=== PATIENT | female | born 1930 | race Caucasian/White ===

== ENCOUNTER 2016-04-08 21:03 | Emergency (ER) | payer OTHER ==
[~2016-04-08] VITALS: Ht 165.1 cm; Wt 51.0 kg
[~2016-04-08 21:03] MED LIST: ASPI81TA45 PO; LISI-360 PO
[2016-04-08 21:05] VITALS: BP 147/75; PULSE 77; RESP 14; TEMP 97.9; O2SAT 98
--- NOTE | 2016-04-08 21:34 | PD ---
HPI Chief Complaint: Fall Time Seen by Provider: 21:14 Travel History International Travel<30 days: No Contact w/Intl Traveler<30days: No Traveled to known affect area: No History of Present Illness HPI 86-year-old female is complaining of chest pain from a fall. She was at her daughter's house. She stood up and fell forward and hit her chest on the coffee table. Since then she's having pain across her chest which is aggravated by movement and deep breathing. She does not think she had any pain before the fall. She is somewhat forgetful. There was no loss of consciousness PFSH Past Medical History Diminished Hearing: No Hypertension: Yes Menopausal: Yes Past Surgical History Appendectomy: Yes Social History Alcohol Use: No Tobacco Use: No Substance Use: No Allergies-Medications (Allergen,Severity, Reaction): Coded Allergies: No Known Allergies (Unverified , 04/08/16) Reported Meds & Prescriptions Reported Meds & Active Scripts Active Reported Galantamine ER (Galantamine Hydrobromide) 16 Mg Caper 16 Mg PO DAILY Lisinopril 10 Mg Tab 10 Mg PO DAILY Review of Systems General / Constitutional: No: Fever, Chills Eyes: No: Diploplia, Blurred Vision HENT: No: Headaches Cardiovascular: Positive: Chest Pain or Discomfort Respiratory: Positive: Pleuritic Pain, No: Wheezing, Sneezing Gastrointestinal: No: Nausea, Vomiting Genitourinary: No: Urgency, Frequency Musculoskeletal: No: Myalgias, Arthralgias Skin: No Rash, No Itching Neurologic: No: Weakness Hematologic/Lymphatic: No: Easy Bruising Physical Exam Narrative GENERAL: Elderly female SKIN: Warm and dry. HEAD: Atraumatic. Normocephalic. EYES: Pupils equal and round. No scleral icterus. No injection or drainage. ENT: No nasal bleeding or discharge. Mucous membranes pink and moist. NECK: Trachea midline. No JVD. CARDIOVASCULAR: Regular rate and rhythm. No murmur appreciated. Is tenderness across the anterior chest. I do not feel any crepitus RESPIRATORY: No accessory muscle use. Clear to auscultation. Breath sounds equal bilaterally. GASTROINTESTINAL: Abdomen soft, non-tender, nondistended. Hepatic and splenic margins not palpable. MUSCULOSKELETAL: No obvious deformities. No clubbing. No cyanosis. No edema. NEUROLOGICAL: Awake and alert. No obvious cranial nerve deficits. Motor grossly within normal limits. Normal speech. PSYCHIATRIC: Appropriate mood and affect; insight and judgment normal. Data Data Last Documented VS Vital Signs Date Time Temp Pulse Resp B/P Pulse Ox O2 Delivery O2 Flow Rate FiO2 04/08/16 21:34 77 18 98 Room Air 04/08/16 21:05 97.9 147/75 Orders Electrocardiogram (04/08/16 21:29) Chest, Pa & Lat (04/08/16 21:29) Acetaminophen (Tylenol) (04/08/16 21:45) MDM Medical Decision Making Medical Screen Exam Complete: Yes Emergency Medical Condition: Yes Medical Record Reviewed: Yes Differential Diagnosis Differential includes rib fracture, pneumothorax, myocardial infarction Narrative Course EKG shows sinus rhythm. This does not appear to be cardiac pain as it was triggered by an injury and is reproducible with palpation x-ray of the chest was negative for fracture and the lung henry are clear. She is stable for discharge Diagnosis Primary Impression: Chest wall contusion Qualified Code: S20.219A - Chest wall contusion, unspecified laterality, initial encounter Disposition: DISCHARGE HOME Condition: Stable Lavell Jimenez MD Apr 08, 2016 21:34
[2016-04-08] MEDS ORDERED: GALA16CA PO (21:40)
[2016-04-08] MEDS ORDERED: LISI10TA3 PO (21:40)
[2016-04-08] MEDS ORDERED: ACETAMINOPHEN 325 MG TAB PO ONE (21:45)
--- NOTE | 2016-04-08 22:32 | RADHPO ---
EXAM DATE/TIME: 04/08/2016 22:11 [facility] COMPARISON: No previous studies available for comparison. INDICATIONS : Chest pain after fall MEDICAL HISTORY : None. SURGICAL HISTORY : None. ENCOUNTER: Initial ACUITY: 1 day PAIN SCORE: 6/10 LOCATION: Bilateral chest FINDINGS: PA and lateral views of the chest demonstrate the lungs to be symmetrically aerated without evidence of mass, infiltrate or effusion. The cardiomediastinal contours are unremarkable. Osseous structure s are intact. The thoracic spine is kyphotic. CONCLUSION: No acute disease. Cisco Sam MD on April 08, 2016 at 22:29 Board Certified Radiologist. This report was verified electronically.
[2016-04-08 22:49] VITALS: BP 145/72
[2016-04-08 22:51] VITALS: RESP 18
--- NOTE | 2016-04-09 17:04 | EKG ---
Date Performed: 04/08/2016 Time Performed: 21:40:16 PTAGE: 86 years EKG: Sinus rhythm . Left anterior fascicular block Cannot rule out septal infarct - age undetermined Left ventricular h ypertrophy Compared to prior tracing no significant change Abnormal ECG NO PREVIOUS TRACING DOCTOR: Sofy Xavier Interpretating Date/Time 04/09/2016 17:02:09
== END 2016-04-08 22:51 | disposition home or self-care (01) ==
LOC: PHED 21:03
DX: S20.219A Contusion of unspecified front wall of thorax, initial encounter (principal); R94.31 Abnormal electrocardiogram [ECG] [EKG]; I10 Essential (primary) hypertension; W18.39XA Other fall on same level, initial encounter; Y92.009 Unspecified place in unspecified non-institutional (private) residence as the place of occurrence of the external cause
CPT/HCPCS: 71020; 93005

== ENCOUNTER 2017-03-03 15:34 | Emergency (ER) | payer OTHER ==
[~2017-03-03] VITALS: Ht 162.6 cm; Wt 60.8 kg
[~2017-03-03 15:34] MED LIST changes: -ASPI81TA45 PO; +GALA16CA PO; -LISI-360 PO; +LISI10TA3 PO
[2017-03-03 15:39] VITALS: BP 173/71; PULSE 88; RESP 16; TEMP 97.4; O2SAT 98
[2017-03-03] MEDS ORDERED: LUTE20CA10 PO (16:33)
[2017-03-03] MEDS ORDERED: ASPI81CH6 CHEW (16:33)
[2017-03-03] MEDS ORDERED: NAME10TA PO (16:33)
[2017-03-03] MEDS ORDERED: OMEGCAP PO (16:33)
[2017-03-03] MEDS ORDERED: BIOT10TA PO (16:33)
[2017-03-03] MEDS ORDERED: CITA10TA4 PO (16:33)
--- NOTE | 2017-03-03 16:55 | PD ---
HPI Chief Complaint: Fall Time Seen by Provider: 16:32 Travel History International Travel<30 days: No Contact w/Intl Traveler<30days: No Traveled to known affect area: No History of Present Illness HPI 86-year-old female long term patient with history of dementia, presents to the ER today brought in by her family because apparently she was found on the side of the bed, thinks that she fell, does not remember whether she lost consciousness or not. She has some bruising to her left face, both arms. Patient denies other injuries, was ambulatory into the room with family. She denies any chest pains, shortness of breath, headaches, vomiting, or other issues. Modifying Factors: None Associated Signs & Symptoms: Fall from bed, left facial injuries Risk Factors: Elderly, demented [facility] Past Medical History Depression: Yes Dementia: Yes Diminished Hearing: No Hypertension: Yes Immunizations Current: Yes Influenza Vaccination: Yes ?: Not Menopausal: Yes Past Surgical History Appendectomy: Yes Social History Alcohol Use: No Tobacco Use: No Substance Use: No Allergies-Medications (Allergen,Severity, Reaction): Coded Allergies: No Known Allergies (Unverified Adverse Reaction, Unknown, 03/03/17) Reported Meds & Prescriptions Reported Meds & Active Scripts Active Reported Natural Lutein (Lutein) 20 Mg Cap 20 Mg PO DAILY Namenda (Memantine) 10 Mg Tab 10 Mg PO BID [place]-3 Fish Oil/Vitamin (Fish Oil-Cholecalciferol) 1,000-1,000 Mg Cap 1 Cap PO DAILY Biotin 10 Mg Tab 100 Mg PO DAILY Aspirin Low Dose (Aspirin) 81 Mg Chew 81 Mg CHEW DAILY Citalopram (Citalopram Hydrobromide) 10 Mg Tab 10 Mg PO DAILY Lisinopril 10 Mg Tab 10 Mg PO DAILY Review of Systems ROS Limitations: Altered Mental Status Physical Exam Narrative GENERAL: Well-developed pleasant elderly white female patient currently in mild distress. Awake and oriented 3. SKIN: Focused skin assessment warm/dry. Small amount of ecchymosis to the left upper arm and small spot of ecchymosis to the right knee. HEAD: There is small amount of ecchymosis over the left zygomatic area and left lateral orbital area, mildly tender to palpation without deformities. Normocephalic. EYES: Pupils equal and round. No scleral icterus. No injection or drainage. ENT: No nasal bleeding or discharge. Mucous membranes pink and moist. NECK: Trachea midline. No JVD. CARDIOVASCULAR: Regular rate and rhythm. No murmur appreciated. RESPIRATORY: No accessory muscle use. Clear to auscultation. Breath sounds equal bilaterally. GASTROINTESTINAL: Abdomen soft, non-tender, nondistended. Hepatic and splenic margins not palpable. MUSCULOSKELETAL: No obvious deformities. No clubbing. No cyanosis. No edema. EXTREMITIES: No clubbing, cyanosis, or edema. No joint tenderness, effusion, or edema noted. No point tenderness. Nontender to range of motion in all 4 extremities. Pelvis: Stable and nontender to palpation. Nontender range of motion bilaterally of the hips. NEUROLOGICAL: Awake and alert. No obvious cranial nerve deficits. Motor grossly within normal limits. Normal speech. PSYCHIATRIC: Appropriate mood and affect; insight and judgment normal. Data Data Last Documented VS Vital Signs Date Time Temp Pulse Resp B/P (MAP) Pulse Ox O2 Delivery O2 Flow Rate FiO2 03/03/17 16:26 77 98 03/03/17 15:39 97.4 16 173/71 (105) Orders Orders Ct Brain W/O Iv Contrast(Rout) (03/03/17 16:27) Ct Cerv Spine W/O Contrast (03/03/17 16:32) Ct Facial Bones W/O Iv Cont (03/03/17 16:32) MDM Medical Decision Making Medical Screen Exam Complete: Yes Emergency Medical Condition: Yes Medical Record Reviewed: Yes Interpretation(s) Last [address] 03/03/17 1632 Signed Impressions: Service Date/Time: Friday, March 03, 2017 17:14 - CONCLUSION: 1. No acute bony injury is seen. 2. Focal superficial soft tissue swelling at the left submandibular region. 3. Sinus disease. Cisco Sam MD Head CT 03/03/17 1627 Signed Impressions: Service Date/Time: Friday, March 03, 2017 17:14 - CONCLUSION: 1. No acute intracranial abnormality seen. 2. Age-related atrophy and suspected small vessel ischemic changes white matter. 3. Opacification of the right sphenoid sinus. This is unchanged from the prior exam. Cisco Sam MD Differential Diagnosis Fall, head injury, left facial injury/rule out intracranial injuries Narrative Course Patient is ambulatory in the ER. She has nontender range of motion in all 4 extremities and I do not suspect underlying acute fractures in this case. She is ambulatory in the ER moving all 4 extremities without issues. CAT scans of the head, neck, and face did not show any signs of acute fractures or intracranial injuries. At this point, my plan would be to release her with follow-up to primary care doctor. Return for any new issues as needed. The plan has discussed with her and family and they state understanding. Diagnosis Primary Impression: Fall from bed Additional Impressions: Multiple contusions Facial contusion Disposition: 03 DISCHARGE TO SNF Condition: Stable Khushbu Castle MD Mar 03, 2017 16:55
--- NOTE | 2017-03-03 17:28 | RADRPT ---
EXAM DATE/TIME: 03/03/2017 17:14 [facility] COMPARISON: CT BRAIN W/O CONTRAST, July 25, 2014, 19:57. INDICATIONS : Fell and hit head. RADIATION DOSE: 53.67 CTDIvol (mGy) MEDICAL HISTORY : Dementia. Hypertension. SURGICAL HISTORY : Appendectomy. ENCOUNTER: Initial ACUITY: 1 day PAIN SCALE: 6/10 LOCATION: Left cranial TECHNIQUE: Multiple contiguous axial images were obtained of the head. Using automated exposure control and adj ustment of the mA and/or kV according to patient size, radiation dose was kept as low as reasonably a chievable to obtain optimal diagnostic quality images. DICOM format image data is available electro nically for review and comparison. FINDINGS: CEREBRUM: The ventricles and cortical sulci are widened. There is decreased density in the cerebral white matte r. No evidence of midline shift, mass lesion, hemorrhage or acute infarction. No extra-axial fluid collections are seen. POSTERIOR FOSSA: The cerebellum and brainstem are intact. The 4th ventricle is midline. The cerebellopontine angle i s unremarkable. EXTRACRANIAL: The visualized portion of the orbits is intact. There is opacification of the right sphenoid sinus. SKULL: The calvaria is intact. No evidence of skull fracture. CONCLUSION: 1. No acute intracranial abnormality seen. 2. Age-related atrophy and suspected small vessel ischemic changes white matter. 3. Opacification of the right sphenoid sinus. This is unchanged from the prior exam. Cisco Sam MD on March 03, 2017 at 17:25 Board Certified Radiologist. This report was verified electronically.
--- NOTE | 2017-03-03 17:38 | RADRPT ---
EXAM DATE/TIME: 03/03/2017 17:14 [facility] COMPARISON: No previous studies available for comparison. INDICATIONS : Fell and hit head. RADIATION DOSE: 25.68 CTDIvol (mGy) MEDICAL HISTORY : Dementia. Hypertension. SURGICAL HISTORY : Appendectomy. ENCOUNTER: Initial ACUITY: 1 day PAIN SCORE: 6/10 LOCATION: Left facial TECHNIQUE: Volumetric scanning of the facial bones was performed. Using automated exposure control and adjustme nt of the mA and/or kV according to patient size, radiation dose was kept as low as reasonably achiev able to obtain optimal diagnostic quality images. DICOM format image data is available electronicall y for review and comparison. FINDINGS: ORBITS: The orbital and infraorbital osseous structures are intact. The retroconal structures have a normal configuration. No radiopaque foreign bodies are seen. NASAL BONE: The nasal bone and maxillary spine are intact ZYGOMATIC ARCHES: Symmetric without evidence of fracture. SINUSES: There is opacification of the right sphenoid sinus. There some thickening of the bones of the right s phenoid sinus consistent with chronic change. There is mild mucosal thickening at the maxillary sinus es bilaterally. NASAL CAVITY: The nasal septum is intact and midline. The lacrimal ducts are intact. SOFT TISSUES: There is superficial soft tissue swelling at the inferior lateral left lower face and submandibular r egion. INTRACRANIAL: No intracranial air seen. CRIBIFORM PLATE: Grossly intact. CONCLUSION: 1. No acute bony injury is seen. 2. Focal superficial soft tissue swelling at the left submandibular region. 3. Sinus disease. Cisco Sam MD on March 03, 2017 at 17:32 Board Certified Radiologist. This report was verified electronically.
--- NOTE | 2017-03-03 17:44 | RADRPT ---
EXAM DATE/TIME: 03/03/2017 17:14 [facility] COMPARISON: No previous studies available for comparison. INDICATIONS : Fell and hit head. RADIATION DOSE: 26.61 CTDIvol (mGy) MEDICAL HISTORY : Dementia. Hypertension. SURGICAL HISTORY : Appendectomy. ENCOUNTER: Initial ACUITY: 1 day PAIN SCALE: 6/10 LOCATION: Left neck TECHNIQUE: Volumetric scanning of the cervical spine was performed. Multiplanar reconstructions in the sagittal, coronal and oblique axial planes were performed. Using automated exposure control and adjustment o f the mA and/or kV according to patient size, radiation dose was kept as low as reasonably achievable to obtain optimal diagnostic quality images. DICOM format image data is available electronically f or review and comparison. FINDINGS: VERTEBRAE: Normal vertebral body height. Marked intervertebral disc space narrowing at the C5-6 level. ALIGNMENT: There is an accentuated cervical lordosis. Mild anterior spondylolisthesis of C4 on C5.. C2-C3: The bony spinal canal is normal in size. No evidence of disc bulge or herniation. The neural forami na are bilaterally patent. Right-sided facet joint is fused C3-C4: The bony spinal canal is normal in size. No evidence of disc bulge or herniation. The neural forami na are bilaterally patent. Hypertrophic facet disease. C4-C5: The bony spinal canal is normal in size. No evidence of disc bulge or herniation. The neural forami na are bilaterally patent. C5-C6: The bony spinal canal is normal in size. No evidence of disc bulge or herniation. Bilateral facet hy pertrophy. Mild right-sided neural foraminal narrowing.. C6-C7: The bony spinal canal is normal in size. No evidence of disc bulge or herniation. The neural forami na are bilaterally patent. C7-T1: The bony spinal canal is normal in size. No evidence of disc bulge or herniation. The neural forami na are bilaterally patent. CONCLUSION: Accentuated cervical lordosis. Marked intervertebral disc space narrowing at the C5-6 level. No evide nce of endplate fracture. Janak Nuñez MD on March 03, 2017 at 17:39 Board Certified Radiologist. This report was verified electronically.
[2017-03-03 18:06] VITALS: BP 144/68
== END 2017-03-03 18:16 ==
LOC: PHED 15:34
DX: S00.83XA Contusion of other part of head, initial encounter (principal); I10 Essential (primary) hypertension; F03.90 Unspecified dementia, unspecified severity, without behavioral disturbance, psychotic disturbance, mood disturbance, and anxiety; W06.XXXA Fall from bed, initial encounter
CPT/HCPCS: 70450; 70486; 72125

== ENCOUNTER 2017-05-15 15:29 | Emergency (ER) | payer OTHER ==
[~2017-05-15] VITALS: Ht 162.6 cm; Wt 66.0 kg
[~2017-05-15 15:29] MED LIST changes: +ASPI81CH6 CHEW; +BIOT10TA PO; +CITA10TA4 PO; -GALA16CA PO; +LUTE20CA10 PO; +NAME10TA PO; +OMEGCAP PO
[2017-05-15 15:40] VITALS: BP 130/63; PULSE 70; RESP 16; TEMP 97.7; O2SAT 96
--- NOTE | 2017-05-15 17:28 | RADRPT ---
EXAM DATE/TIME: 05/15/2017 17:08 [facility] COMPARISON: CT BRAIN W/O CONTRAST, March 03, 2017, 17:14. INDICATIONS : Trauma, fall. RADIATION DOSE: 61.08 CTDIvol (mGy) MEDICAL HISTORY : Dementia. Hypertension. SURGICAL HISTORY : None. ENCOUNTER: Initial ACUITY: 1 day PAIN SCALE: 0/10 LOCATION: cranial TECHNIQUE: Multiple contiguous axial images were obtained of the head. Using automated exposure control and adj ustment of the mA and/or kV according to patient size, radiation dose was kept as low as reasonably a chievable to obtain optimal diagnostic quality images. DICOM format image data is available electro nically for review and comparison. FINDINGS: CEREBRUM: There is generalized atrophy. Moderate to severe periventricular white matter low attenuation is stab le. No evidence of midline shift, mass lesion, hemorrhage or acute infarction. No extra-axial fluid collections are seen. POSTERIOR FOSSA: The cerebellum and brainstem are intact. The 4th ventricle is midline. The cerebellopontine angle i s unremarkable. EXTRACRANIAL: There is chronic opacification of the right sphenoid sinus. SKULL: The calvaria is intact. No evidence of skull fracture. CONCLUSION: 1. No acute intracranial abnormality is identified. 2. Stable chronic brain changes include generalized atrophy and periventricular white matter changes characteristic of chronic microvascular ischemia. Cisco Kiran MD on May 15, 2017 at 17:25 Board Certified Radiologist. This report was verified electronically.
--- NOTE | 2017-05-15 17:33 | RADRPT ---
EXAM DATE/TIME: 05/15/2017 17:08 [facility] COMPARISON: CT CERVICAL SPINE W/O CONTRAST, March 03, 2017, 17:14. INDICATIONS : Trauma, fall. RADIATION DOSE: 25.99 CTDIvol (mGy) MEDICAL HISTORY : Dementia. Hypertension. SURGICAL HISTORY : None. ENCOUNTER: Initial ACUITY: 1 day PAIN SCALE: 0/10 LOCATION: neck TECHNIQUE: Volumetric scanning of the cervical spine was performed. Multiplanar reconstructions in the sagittal, coronal and oblique axial planes were performed. Using automated exposure control and adjustment o f the mA and/or kV according to patient size, radiation dose was kept as low as reasonably achievable to obtain optimal diagnostic quality images. DICOM format image data is available electronically f or review and comparison. FINDINGS: There is stable minimal anterolisthesis of C4 on C5 likely related to facet arthrosis. The atlantoaxi al relationship is within normal limits. There is no prevertebral soft tissue swelling present. No fr acture or dislocation is identified. There is multilevel degenerative disc disease at C3-C4 through C 6-C7. There is also bilateral facet arthrosis at multiple levels. Findings are similar to the prior e xamination. The visualized portions of the posterior fossa, paraspinous soft tissues, and upper lung zones demons trate no acute abnormality. CONCLUSION: No acute cervical spine abnormality is identified. There is multilevel degenerative change, as above. Cisco Kiran MD on May 15, 2017 at 17:28 Board Certified Radiologist. This report was verified electronically.
--- NOTE | 2017-05-15 17:45 | RADRPT ---
EXAM DATE/TIME: 05/15/2017 17:19 [facility] COMPARISON: No previous studies available for comparison. INDICATIONS : Right upper arm pain post fall today MEDICAL HISTORY : None. SURGICAL HISTORY : None. ENCOUNTER: Initial ACUITY: 1 day PAIN SCORE: 5/10 LOCATION: Right mid-shaft humerus FINDINGS: 2 views right humerus demonstrate no fracture or dislocation. Mineralization is decreased. No soft ti ssue abnormality or radiopaque foreign body is identified. CONCLUSION: No acute abnormality is identified. Cisco Kiran MD on May 15, 2017 at 17:42 Board Certified Radiologist. This report was verified electronically.
--- NOTE | 2017-05-15 17:46 | RADRPT ---
EXAM DATE/TIME: 05/15/2017 17:19 [facility] COMPARISON: No previous studies available for comparison. INDICATIONS : Right hip pain post fall today MEDICAL HISTORY : None. SURGICAL HISTORY : None. ENCOUNTER: Initial ACUITY: 1 day PAIN SCORE: 5/10 LOCATION: Right entire hip FINDINGS: AP view of the pelvis with 2 views of the right hip joint demonstrate no fracture or dislocation. The bones are mildly undermineralized. 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 Degenerative change s are present at the pubic symphysis. No soft tissue abnormality or radiopaque foreign body is identi fied. CONCLUSION: No acute abnormality is identified. Cisco Kiran MD on May 15, 2017 at 17:44 Board Certified Radiologist. This report was verified electronically.
--- NOTE | 2017-05-15 17:49 | PD ---
HPI Chief Complaint: Fall Time Seen by Provider: 16:45 Travel History International Travel<30 days: No Contact w/Intl Traveler<30days: No Traveled to known affect area: No History of Present Illness HPI 87yo F with PMH of dementia was sent here for evaluation after fall. Pt said she does not know how or why she fell. She said it happened so fast and cant remember exactly what happened. Denies any dizziness, fever, chest pain, sob, n /v, abdominal pain, focal weakness or numbness. PFSH Past Medical History Hx Anticoagulant Therapy: No Depression: Yes Dementia: Yes Diminished Hearing: No Hypertension: Yes Immunizations Current: Yes Tetanus Vaccination: Unknown ?: Not Menopausal: Yes Past Surgical History Appendectomy: Yes Social History Alcohol Use: No Tobacco Use: No Substance Use: No Allergies-Medications (Allergen,Severity, Reaction): Coded Allergies: No Known Allergies (Unverified Adverse Reaction, Unknown, 05/15/17) Reported Meds & Prescriptions Reported Meds & Active Scripts Active Tylenol (Acetaminophen) 325 Mg Tab 325 Mg PO Q4H PRN Reported Natural Lutein (Lutein) 20 Mg Cap 20 Mg PO DAILY Namenda (Memantine) 10 Mg Tab 10 Mg PO BID [place]-3 Fish Oil/Vitamin (Fish Oil-Cholecalciferol) 1,000-1,000 Mg Cap 1 Cap PO DAILY Biotin 10 Mg Tab 100 Mg PO DAILY Aspirin Low Dose (Aspirin) 81 Mg Chew 81 Mg CHEW DAILY Citalopram (Citalopram Hydrobromide) 10 Mg Tab 10 Mg PO DAILY Lisinopril 10 Mg Tab 10 Mg PO DAILY Review of Systems Except as stated in HPI: all other systems reviewed are Neg Physical Exam Narrative GEN: 87yo F not in distress. HEAD: Normocephalic, atraumatic. EYES: Pupils reactive and equal. ENT: +Dry blood in right nostril. No hemotympanum. NECK: No midline ttp cervical spine. CV: S1, S2. Lungs: CTA B/L, equal breath sounds. Abd: soft, NT/ND. Ext: +TTP right mid humerus. No edema or erythema. FROM right shoulder. Distal pulses intact. Sensation intact. Mild ttp right hip but good ROM. Sensation intact. Distal pulses intact. Neuro: No focal neurologic deficits. Data Data Last Documented VS Vital Signs Date Time Temp Pulse Resp B/P (MAP) Pulse Ox O2 Delivery O2 Flow Rate FiO2 05/15/17 20:08 98.2 75 16 182/70 (107) 100 05/15/17 19:02 Room Air Orders Orders Electrocardiogram (05/15/17 17:00) Basic Metabolic Panel (Bmp) (05/15/17 17:00) Complete Blood Count With Diff (05/15/17 17:00) Magnesium (Mg) (05/15/17 17:00) Troponin I (05/15/17 17:00) Act Partial Throm Time (Ptt) (05/15/17 17:00) Prothrombin Time / Inr (Pt) (05/15/17 17:00) Ct Brain W/O Iv Contrast(Rout) (05/15/17 17:00) Ct Cerv Spine W/O Contrast (05/15/17 17:00) Humerus (Min 2vws) (05/15/17 ) Hip, Uni(Ap&Lat) W Ap Pelvis (05/15/17 ) Acetaminophen (Tylenol) (05/15/17 19:45) Ed Discharge Order (05/15/17 19:46) Labs Laboratory Tests Test 05/15/17 17:38 White Blood Count 7.0 TH/MM3 Red Blood Count 3.70 MIL/MM3 Hemoglobin 10.6 GM/DL Hematocrit 33.8 % Mean Corpuscular Volume 91.4 FL Mean Corpuscular Hemoglobin 28.7 PG Mean Corpuscular Hemoglobin Concent 31.4 % Red Cell Distribution Width 14.5 % Platelet Count 277 TH/MM3 Mean Platelet Volume 9.0 FL Neutrophils (%) (Auto) 56.8 % Lymphocytes (%) (Auto) 25.2 % Monocytes (%) (Auto) 12.1 % Eosinophils (%) (Auto) 4.8 % Basophils (%) (Auto) 1.1 % Neutrophils # (Auto) 4.0 TH/MM3 Lymphocytes # (Auto) 1.8 TH/MM3 Monocytes # (Auto) 0.8 TH/MM3 Eosinophils # (Auto) 0.3 TH/MM3 Basophils # (Auto) 0.1 TH/MM3 CBC Comment DIFF FINAL Differential Comment Prothrombin Time 10.4 SEC Prothromb Time International Ratio 1.0 RATIO Activated Partial Thromboplast Time 21.2 SEC Blood Urea Nitrogen 39 MG/DL Creatinine 1.30 MG/DL Random Glucose 93 MG/DL Calcium Level 8.5 MG/DL Magnesium Level 2.4 MG/DL Sodium Level 140 MEQ/L Potassium Level 4.7 MEQ/L Chloride Level 108 MEQ/L Carbon Dioxide Level 23.2 MEQ/L Anion Gap 9 MEQ/L Estimat Glomerular Filtration Rate 39 ML/MIN Troponin I LESS THAN 0.02 NG/ML MDM Medical Decision Making Medical Screen Exam Complete: Yes Emergency Medical Condition: Yes Interpretation(s) EKG: NSR 67bpm. LAD. QTc 416ms. No ST segment elevation or depression. Differential Diagnosis Mechanical fall vs. syncope vs. dehydration vs. ICH Narrative Course 87yo F with dementia from [facility] was sent here for evaluation after fall. Labs reviewed, no leukocytosis. H/H low at 10.6/33.8 but this is around her baseline. BMP showed elevated BUN/creatinine of 39/1.30. Pt is tolerating PO and can orally hydrate. Troponin negative. CT cspine showed no acute cervical spine abnormality. CT brain showed no acute intracranial abnormality. Xray right hip showed no acute abnormality. Xray right humerus showed no acute abnormality. Pt is well appearing and denies any complaints at this time. No abrasion or laceration. Pt did have dry blood in right nostril. Denies any anticoagulation. [facility] Return precautions given. Diagnosis Primary Impression: Fall Qualified Codes: W19.XXXA - Unspecified fall, initial encounter Patient Instructions: General Instructions Departure Forms: Tests/Procedures Additional Instructions: Please follow up with your primary care physician in 2-3 days. Return to the ED if symptoms worsen. Med/Other Pt SpecificInfo: Prescription(s) given Scripts Acetaminophen (Tylenol) 325 Mg Tab 325 MG PO Q4H Y for PAIN SCALE 1 TO 4, #20 TAB 0 Refills Prov: FrostNguyen 05/15/17 Disposition: 01 DISCHARGE HOME Condition: Stable FrostNguyen DO May 15, 2017 17:49
[2017-05-15 18:38] LABS: BASOPHIL # 0.1 TH/MM3 (0-0.2); BASOPHIL % 1.1 % (0.0-2.0); EOSINOPHIL # 0.3 TH/MM3 (0-0.4); EOSINOPHIL % 4.8 % (0.0-4.0); HEMATOCRIT 33.8 % (35.0-46.0); HEMOGLOBIN 10.6 GM/DL (11.6-15.3); LYMPH % 25.2 % (9.0-44.0); LYMPHOCYTE # 1.8 TH/MM3 (1.0-4.8); MEAN CELL VOLUME 91.4 FL (80.0-100.0); MEAN CORPUSCULAR HEMOGLOBIN 28.7 PG (27.0-34.0); MEAN CORPUSCULAR HGB CONC 31.4 % (32.0-36.0); MONO % 12.1 % (0.0-8.0); MONOCYTE # 0.8 TH/MM3 (0-0.9); NEUT % 56.8 % (16.0-70.0); PLATELET COUNT 277 TH/MM3 (150-450); RED CELL DISTRIBUTION WIDTH 14.5 % (11.6-17.2)
[2017-05-15 18:48] LABS: CHLORIDE 108 MEQ/L (98-107); SODIUM (NA) 140 MEQ/L (136-145)
[2017-05-15 18:51] LABS: BICARBONATE 23.2 MEQ/L (21.0-32.0); BLOOD UREA NITROGEN 39 MG/DL (7-18); CALCIUM 8.5 MG/DL (8.5-10.1); GLUCOSE,RANDOM 93 MG/DL (74-106); MAGNESIUM 2.4 MG/DL (1.5-2.5)
[2017-05-15 18:54] LABS: PROTHROMBIN TIME - PATIENT 10.4 SEC (9.8-11.6)
[2017-05-15 18:55] LABS: GLOMERULAR FILTRATION RATE 39 ML/MIN (>89)
[2017-05-15 18:59] LABS: TROPONIN I LESS THAN 0.02 NG/ML (0.02-0.05)
[2017-05-15 19:02] VITALS: BP 199/65; PULSE 88; RESP 16; O2SAT 97
[2017-05-15] MEDS ORDERED: TYLE325T PO (19:40)
[2017-05-15] MEDS ORDERED: ACETAMINOPHEN 500 MG CPLT PO ONE (19:45)
[2017-05-15 20:08] VITALS: BP 182/70; TEMP 98.2
--- NOTE | 2017-05-16 11:31 | EKG ---
Date Performed: 05/15/2017 Time Performed: 17:40:59 PTAGE: 87 years EKG: Sinus rhythm MARKED LEFT AXIS DEVIATION VOLTAGE CRITERIA FOR LVH POSSIBLE SEPTAL MYOCARDIAL INFARCTION ABNORMAL E CG Since the prior tracing, there has been no significant change PREVIOUS TRACING : 04/08/2016 21.40 DOCTOR: Sofy Xavier Interpretating Date/Time 05/16/2017 11:29:22
== END 2017-05-15 20:10 | disposition home or self-care (01) ==
LOC: PHED 15:29
DX: Z04.8 Encounter for examination and observation for other specified reasons (principal); F03.90 Unspecified dementia, unspecified severity, without behavioral disturbance, psychotic disturbance, mood disturbance, and anxiety; I10 Essential (primary) hypertension; R94.31 Abnormal electrocardiogram [ECG] [EKG]; F32.9 Major depressive disorder, single episode, unspecified; W19.XXXA Unspecified fall, initial encounter; Y92.129 Unspecified place in nursing home as the place of occurrence of the external cause; Z79.82 Long term (current) use of aspirin; Z79.899 Other long term (current) drug therapy
CPT/HCPCS: 70450; 72125; 73060; 73502; 80048; 83735; 84484; 85025; 85610; 85730; 93005; 99285

== ENCOUNTER 2017-06-11 15:13 | Inpatient (IN) | payer OTHER, MEDICARE ==
[~2017-06-11] VITALS: Ht 165.1 cm; Wt 65.4 kg
[~2017-06-11 15:13] MED LIST changes: +TYLE325T PO
[2017-06-11 15:22] VITALS: BP 157/74; PULSE 82; RESP 16; TEMP 97.6; O2SAT 93
[2017-06-11] MEDS ORDERED: LIDOCAINE HCL 1% 50 ML VIAL INFIL ONE (15:30)
[2017-06-11] MEDS ORDERED: TETANUS/DIPHTHERIA TOXOID ADULT 0.5 ML VIAL IM ONE (15:30)
[2017-06-11] MEDS ORDERED: DONE5TAB7 PO (15:34)
[2017-06-11] MEDS ORDERED: LIDOCAINE HCL 1% PF 30 ML VIAL ONE (15:36)
[2017-06-11] MEDS ORDERED: LIDOCAINE HCL 1% PF 30 ML VIAL INFIL ONE (15:45)
[2017-06-11] MEDS ORDERED: SODIUM CHLORIDE 0.9% FLUSH 10 ML FLUSH IVF PRN (16:00)
--- NOTE | 2017-06-11 16:04 | PD ---
HPI Chief Complaint: Fall Time Seen by Provider: 15:17 Travel History International Travel<30 days: No Contact w/Intl Traveler<30days: No Traveled to known affect area: No History of Present Illness HPI 87-year-old woman who presents to the emergency department complaining of left leg pain after a fall. She states that she tripped on a rug. She fell. She complains of pain just in her left hip and left thigh. She has a small laceration to her left brow. Denies any LOC. Was not witnessed. She resides in a senior home. States only medical history is hypertension. Denies any blood thinners. No other complaints. History Past Medical History Narrative Medical Hypertension Tetanus Vaccination: Unknown Menopausal: Yes Social History Alcohol Use: No Tobacco Use: No Allergies-Medications (Allergen,Severity, Reaction): Coded Allergies: No Known Allergies (Unverified Adverse Reaction, Unknown, 06/11/17) Reported Meds & Prescriptions Reported Meds & Active Scripts Active Tylenol (Acetaminophen) 325 Mg Tab 325 Mg PO Q4H PRN Reported Donepezil 5 Mg Tab 5 Mg PO HS Natural Lutein (Lutein) 20 Mg Cap 20 Mg PO DAILY Namenda (Memantine) 10 Mg Tab 10 Mg PO BID [place]-3 Fish Oil/Vitamin (Fish Oil-Cholecalciferol) 1,000-1,000 Mg Cap 1 Cap PO DAILY Biotin 10 Mg Tab 100 Mg PO DAILY Aspirin Low Dose (Aspirin) 81 Mg Chew 81 Mg CHEW DAILY Citalopram (Citalopram Hydrobromide) 10 Mg Tab 10 Mg PO DAILY Lisinopril 10 Mg Tab 10 Mg PO DAILY Review of Systems Except as stated in HPI: all other systems reviewed are Neg Physical Exam Narrative GENERAL: Elderly 87-year-old woman, no acute distress per SKIN: Focused skin assessment warm/dry. HEAD: Normocephalic. There is about 1 inch laceration to the left brow. Some tenderness there was some ecchymosis. No significant swelling. EYES: Pupils equal and round. No scleral icterus. No injection or drainage. ENT: No nasal bleeding or discharge. Mucous membranes pink and moist. NECK: No midline tenderness. Moves neck freely. CARDIOVASCULAR: Regular rate and rhythm. No murmur appreciated. RESPIRATORY: No accessory muscle use. Clear to auscultation. Breath sounds equal bilaterally. GASTROINTESTINAL: Abdomen soft, non-tender, nondistended. Hepatic and splenic margins not palpable. MUSCULOSKELETAL: No obvious deformities. No edema. NEUROLOGICAL: Awake and alert. No obvious cranial nerve deficits. Motor grossly within normal limits. Normal speech. PSYCHIATRIC: Appropriate mood and affect; insight and judgment normal. Data Data Last Documented VS Vital Signs Date Time Temp Pulse Resp B/P (MAP) Pulse Ox O2 Delivery O2 Flow Rate FiO2 06/11/17 15:28 16 93 Room Air 06/11/17 15:22 97.6 82 157/74 (101) Orders Orders Ct Brain W/O Iv Contrast(Rout) (06/11/17 ) Pelvis, Ap Only (Routine) (06/11/17 ) Femur (Ap & Lat/2vws) (06/11/17 ) Lidocaine 1% Inj (50 Ml) (Xylocaine 1% I (06/11/17 15:30) Tetanus/Diphtheria Tox Adult (Tetanus/Di (06/11/17 15:30) Lidocaine Pf 1% Inj (Xylocaine-Mpf 1% In (06/11/17 15:45) Lidocaine Pf 1% Inj (Xylocaine-Mpf 1% In (06/11/17 15:36) Electrocardiogram (06/11/17 15:54) Complete Blood Count With Diff (06/11/17 15:54) Comprehensive Metabolic Panel (06/11/17 15:54) Prothrombin Time / Inr (Pt) (06/11/17 15:54) Act Partial Throm Time (Ptt) (06/11/17 15:54) Urinalysis - C+S If Indicated (06/11/17 15:54) Type And Screen (06/11/17 15:54) Chest, Single Ap (06/11/17 15:54) Iv Access Insert/Monitor (06/11/17 15:54) Oximetry (06/11/17 15:54) Ice/Cold Pack (06/11/17 15:54) Ecg Monitoring (06/11/17 15:54) Sodium Chloride 0.9% Flush (Ns Flush) (06/11/17 16:00) MDM Medical Decision Making Medical Screen Exam Complete: Yes Emergency Medical Condition: Yes Interpretation(s) My review of left hip x-ray: Femoral neck fracture. Differential Diagnosis Hip fracture, femur fracture, contusion, pubic rami fracture, other Narrative Course Medical decision making INITIAL call is an 87-year-old woman presents to the emergency department with left hip pain after a fall. She reports tripping on a rug. She also has a small laceration her left brow. Is not on blood thinners. Check CT head. X- ray of the hip shows a femoral neck fracture. Will obtain preop labs and EKG. Admit to medicine. Routine Orth O consult. Janak Longoria MD Jun 11, 2017 16:04
--- NOTE | 2017-06-11 16:15 | RADRPT ---
EXAM DATE/TIME: 06/11/2017 15:33 [facility] COMPARISON: No previous studies available for comparison. INDICATIONS : Left hip pain post fall. MEDICAL HISTORY : None. SURGICAL HISTORY : None. ENCOUNTER: Initial ACUITY: 1 day PAIN SCORE: 5/10 LOCATION: Left pelvis. FINDINGS: A single frontal view the pelvis shows osteopenia. A linear lucency is seen involving the subcapital femoral neck on the left. There is cortical irregularity. Femoral head remains in contact with the ac etabulum. The bony pelvis is otherwise intact. Degenerative changes involving the hip joints and pubi c symphysis. CONCLUSION: Acute left subcapital femoral neck fracture. Kris Nino Jr., MD on June 11, 2017 at 16:12 Board Certified Radiologist. This report was verified electronically.
--- NOTE | 2017-06-11 16:16 | RADRPT ---
EXAM DATE/TIME: 06/11/2017 15:33 [facility] COMPARISON: No previous studies available for comparison. INDICATIONS : Left femur pain post fall. MEDICAL HISTORY : None. SURGICAL HISTORY : None. ENCOUNTER: Initial ACUITY: 1 day PAIN SCORE: 5/10 LOCATION: Left femur. FINDINGS: There is a mildly displaced subcapital fracture of the proximal left femur. No dislocation. No other fractures are identified. CONCLUSION: 1. Mildly displaced subcapital fracture proximal left femur. Darnell Kam MD on June 11, 2017 at 16:12 Board Certified Radiologist. This report was verified electronically.
[2017-06-11 16:33] LABS: AUTOMATED NEUTROPHIL # 8.9 TH/MM3 (1.8-7.7); BASOPHIL # 0.2 TH/MM3 (0-0.2); BASOPHIL % 1.7 % (0.0-2.0); EOSINOPHIL # 0.2 TH/MM3 (0-0.4); EOSINOPHIL % 1.7 % (0.0-4.0); HEMOGLOBIN 11.2 GM/DL (11.6-15.3); LYMPH % 8.8 % (9.0-44.0); MEAN CORPUSCULAR HEMOGLOBIN 30.9 PG (27.0-34.0); MEAN CORPUSCULAR HGB CONC 33.9 % (32.0-36.0); MEAN PLATELET VOLUME 7.8 FL (7.0-11.0); MONO % 5.6 % (0.0-8.0); MONOCYTE # 0.6 TH/MM3 (0-0.9); NEUT % 82.2 % (16.0-70.0); PLATELET COUNT 236 TH/MM3 (150-450); RED BLOOD COUNT 3.62 MIL/MM3 (4.00-5.30); WHITE BLOOD COUNT 10.9 TH/MM3 (4.0-11.0)
[2017-06-11 16:48] LABS: CHLORIDE 107 MEQ/L (98-107); SODIUM (NA) 139 MEQ/L (136-145)
[2017-06-11 16:51] LABS: ALBUMIN 3.2 GM/DL (3.4-5.0); BLOOD UREA NITROGEN 34 MG/DL (7-18); CALCIUM 8.7 MG/DL (8.5-10.1); GLUCOSE,RANDOM 99 MG/DL (74-106)
[2017-06-11 16:52] LABS: INTERNATIONAL NORMALIZED RATIO 1.1 RATIO; PROTHROMBIN TIME - PATIENT 10.7 SEC (9.8-11.6)
[2017-06-11 16:54] LABS: ALT (GPT) 28 U/L (10-53); AST (GOT) 24 U/L (15-37); GLOMERULAR FILTRATION RATE 33 ML/MIN (>89)
--- NOTE | 2017-06-11 16:54 | RADRPT ---
EXAM DATE/TIME: 06/11/2017 16:20 [facility] COMPARISON: CHEST SINGLE AP, July 25, 2014, 19:46. INDICATIONS : Pain post fall. MEDICAL HISTORY : None. SURGICAL HISTORY : None. ENCOUNTER: Initial ACUITY: 1 day PAIN SCORE: 1/10 LOCATION: Bilateral chest FINDINGS: A single view of the chest demonstrates moderate-sized hiatal hernia. No focal consolidation or effus ion. No pneumothorax. Apical pleural thickening. CONCLUSION: 1. Moderate-sized hiatal hernia. No active disease. Darnell Kam MD on June 11, 2017 at 16:51 Board Certified Radiologist. This report was verified electronically.
[2017-06-11 16:56] LABS: TOTAL BILIRUBIN ADULT 0.5 MG/DL (0.2-1.0); TOTAL PROTEIN 7.2 GM/DL (6.4-8.2)
[2017-06-11 16:57] LABS: ALKALINE PHOSPHATASE 76 U/L (45-117)
[2017-06-11] MEDS ORDERED: NALOXONE HCL 0.4 MG/ML AMP IV PUSH PRN (17:00)
[2017-06-11] MEDS ORDERED: MAGNESIUM HYDROXIDE SUSP 30 ML CUP PO PRN (17:00)
[2017-06-11] MEDS ORDERED: traMADol HCL 50 MG TAB PO PRN (17:00)
[2017-06-11] MEDS ORDERED: ONDANSETRON HCL 4 MG/2 ML VIAL IVP PRN (17:00)
[2017-06-11] MEDS ORDERED: SODIUM CHLORIDE 0.9% FLUSH 10 ML FLUSH IV FLUSH PRN (17:00)
--- NOTE | 2017-06-11 17:08 | RADRPT ---
EXAM DATE/TIME: 06/11/2017 16:43 [facility] COMPARISON: No previous studies available for comparison. INDICATIONS : Fall. RADIATION DOSE: 59.34 CTDIvol (mGy) MEDICAL HISTORY : Hypertension. Anticoagulant therapy. SURGICAL HISTORY : Appendectomy. ENCOUNTER: Initial ACUITY: 1 day PAIN SCALE: 6/10 LOCATION: cranial TECHNIQUE: Multiple contiguous axial images were obtained of the head. Using automated exposure control and adj ustment of the mA and/or kV according to patient size, radiation dose was kept as low as reasonably a chievable to obtain optimal diagnostic quality images. DICOM format image data is available electro nically for review and comparison. FINDINGS: There is marked central and cortical atrophy with dilatation of ventricular and sulcal spaces. There is no parenchymal hemorrhage, acute infarction or mass lesion identified. There are no extra-axial fluid collections appreciated. The posterior fossa is unremarkable with midline fourth ventricle. T he portion of the orbits and paranasal sinuses visualized are unremarkable. CONCLUSION: 1. No acute findings. Darnell Kam MD on June 11, 2017 at 17:04 Board Certified Radiologist. This report was verified electronically.
[2017-06-11] MEDS ORDERED: MORPHINE SULFATE 2 MG/ML SYRINGE IV PUSH ONE (17:15)
[2017-06-11] MEDS: SODIUM CHLOR 0.9% 1000 ML INJ 1,000 ML IV SCH (17:33)
--- NOTE | 2017-06-11 17:40 | HHI.HP ---
[facility] Service [facility] Primary Care Physician Lm Parra MD Admission Diagnosis hip fracture Diagnoses: Travel History International Travel<30 Days: No Contact w/Intl Traveler <30 Da: No Traveled to Known Affected Are: No History of Present Illness Mrs. Dowd is an 87-year-old female. She was at her assisted living facility and tripped and fell on a rug. With the fall she sustained a left hip fracture. Baseline medical conditions or dementia and hypertension. Her only prior surgery is an appendectomy when she was young. Primary complaint is left hip pain. No loss of consciousness or trauma to the head. She also had a laceration at her left eyebrow which has been repaired. She has no other complaints at this time. Review of Systems ROS Limitations: Poor Historian Constitutional: DENIES: Fatigue, Fever, Chills, Night Sweats Eyes: DENIES: Diplopia, Eye inflammation, Eye pain Ears, nose, mouth, throat: DENIES: Tinnitus, Hearing loss, Vertigo Respiratory: DENIES: Cough, Wheezing, Shortness of breath Cardiovascular: DENIES: Chest pain, Palpitations, Syncope Gastrointestinal: DENIES: Abdominal pain, Black stools, Bloody stools Musculoskeletal: COMPLAINS OF: Joint pain, Muscle aches, Stiffness, Joint Swelling Integumentary: DENIES: Abnormal pigmentation, Pruritus, Rash, Nail changes Hematologic/lymphatic: COMPLAINS OF: Bruising, DENIES: Lymphadenopathy Immunologic/allergic: DENIES: Eczema, Urticaria Neurologic: COMPLAINS OF: Abnormal gait, DENIES: Headache, Paresthesias Psychiatric: DENIES: Anxiety, Confusion, Hallucinations Past Family Social History Past Medical History Dementia Hypertension Past Surgical History Appendectomy in childhood Reported Medications Reported Meds & Active Scripts Active Tylenol (Acetaminophen) 325 Mg Tab 325 Mg PO Q4H PRN Reported Donepezil 5 Mg Tab 5 Mg PO HS Natural Lutein (Lutein) 20 Mg Cap 20 Mg PO DAILY Namenda (Memantine) 10 Mg Tab 10 Mg PO BID [place]-3 Fish Oil/Vitamin (Fish Oil-Cholecalciferol) 1,000-1,000 Mg Cap 1 Cap PO DAILY Biotin 10 Mg Tab 100 Mg PO DAILY Aspirin Low Dose (Aspirin) 81 Mg Chew 81 Mg CHEW DAILY Citalopram (Citalopram Hydrobromide) 10 Mg Tab 10 Mg PO DAILY Lisinopril 10 Mg Tab 10 Mg PO DAILY Allergies: Coded Allergies: No Known Allergies (Unverified Adverse Reaction, Unknown, 06/11/17) Family History Circulation problems and also arthritis in father. Social History No history of smoking No history of drinking alcohol No history of illicit drug abuse Physical Exam Vital Signs Vital Signs Date Time Temp Pulse Resp B/P (MAP) Pulse Ox O2 Delivery O2 Flow Rate FiO2 06/11/17 15:28 16 93 Room Air 06/11/17 15:22 97.6 82 16 157/74 (101) 93 Physical Exam GENERAL: NAD, A&Ox2 HEAD: Normocephalic. NECK: Supple, trachea midline. No lymphadenopathy. EYES: No scleral icterus. No injection or drainage. CARDIOVASCULAR: Regular rate and rhythm without murmurs, gallops, or rubs. RESPIRATORY: Breath sounds equal bilaterally. No accessory muscle use. GASTROINTESTINAL: Abdomen soft, non-tender, nondistended. MUSCULOSKELETAL: No cyanosis, or edema. Tenderness of pain at left hip increase of pain with any attempted range of motion. SKIN: Warm and dry. NEURO: No focal neurological deficitis. Laboratory Laboratory Tests Test 06/11/17 16:20 White Blood Count 10.9 Red Blood Count 3.62 Hemoglobin 11.2 Hematocrit 33.0 Mean Corpuscular Volume 91.0 Mean Corpuscular Hemoglobin 30.9 Mean Corpuscular Hemoglobin Concent 33.9 Red Cell Distribution Width 16.0 Platelet Count 236 Mean Platelet Volume 7.8 Neutrophils (%) (Auto) 82.2 Lymphocytes (%) (Auto) 8.8 Monocytes (%) (Auto) 5.6 Eosinophils (%) (Auto) 1.7 Basophils (%) (Auto) 1.7 Neutrophils # (Auto) 8.9 Lymphocytes # (Auto) 1.0 Monocytes # (Auto) 0.6 Eosinophils # (Auto) 0.2 Basophils # (Auto) 0.2 CBC Comment DIFF FINAL Differential Comment Prothrombin Time 10.7 Prothromb Time International Ratio 1.1 Activated Partial Thromboplast Time 22.5 Blood Urea Nitrogen 34 Creatinine 1.50 Random Glucose 99 Total Protein 7.2 Albumin 3.2 Calcium Level 8.7 Alkaline Phosphatase 76 Aspartate Amino Transf (AST/SGOT) 24 Alanine Aminotransferase (ALT/SGPT) 28 Total Bilirubin 0.5 Sodium Level 139 Potassium Level 4.7 Chloride Level 107 Carbon Dioxide Level 26.0 Anion Gap 6 Estimat Glomerular Filtration Rate 33 Result Diagram: 06/11/170 06/11/17 1620 Caprini VTE Risk Assessment Caprini VTE Risk Assessment: No/Low Risk (score <= 1) Caprini Risk Assessment Model Point Value = 1 Point Value = 2 Point Value = 3 Point Value = 5 Age 41-60 Minor surgery BMI > 25 kg/m2 Swollen legs Varicose veins or History of unexplained or recurrent spontaneous Oral contraceptives or hormone replacement Sepsis (< 1 month) Serious lung disease, including pneumonia (< 1 month) Abnormal pulmonary function Acute myocardial infarction Congestive heart failure (< 1 month) History of inflammatory bowel disease Medical patient at bed rest Age 61-74 Arthroscopic surgery Major open surgery (> 45 min) Laparoscopic surgery (> 45 min) Malignancy Confined to bed (> 72 hours) Immobilizing plaster cast Central venous access Age >= 75 History of VTE Family history of VTE Factor V Leiden Prothrombin 31520L Lupus anticoagulant Anticardiolipin antibodies Elevated serum homocysteine Heparin-induced thrombocytopenia Other congenital or acquired thrombophilia Stroke (< 1 month) Elective arthroplasty Hip, pelvis, or leg fracture Acute spinal cord injury (< 1 month) Prophylaxis Regimen Total Risk Factor Score Risk Level Prophylaxis Regimen 0-1 Low Early ambulation 2 Moderate Order ONE of the following: *Sequential Compression Device (SCD) *Heparin 5000 units SQ BID 3-4 Higher Order ONE of the following medications: *Heparin 5000 units SQ TID *Enoxaparin/Lovenox 40 mg SQ daily (WT < 150 kg, CrCl > 30 mL/min) *Enoxaparin/Lovenox 30 mg SQ daily (WT < 150 kg, CrCl > 10-29 mL/min) *Enoxaparin/Lovenox 30 mg SQ BID (WT < 150 kg, CrCl > 30 mL/min) AND/OR *Sequential Compression Device (SCD) 5 or more Highest Order ONE of the following medications: *Heparin 5000 units SQ TID (Preferred with Epidurals) *Enoxaparin/Lovenox 40 mg SQ daily (WT < 150 kg, CrCl > 30 mL/min) *Enoxaparin/Lovenox 30 mg SQ daily (WT < 150 kg, CrCl > 10-29 mL/min) *Enoxaparin/Lovenox 30 mg SQ BID (WT < 150 kg, CrCl > 30 mL/min) AND *Sequential Compression Device (SCD) Assessment and Plan Problem List: (1) Laceration of left eyebrow ICD Code: S01.112A - Laceration without foreign body of left eyelid and periocular area, initial encounter (2) Hip fracture, left ICD Code: S72.002A - Fracture of unspecified part of neck of left femur, initial encounter for closed fracture (3) Dementia ICD Code: F03.90 - Unspecified dementia without behavioral disturbance (4) Hypertension ICD Code: I10 - Essential (primary) hypertension Assessment and Plan 87-year-old female admitted secondary to left hip fracture Left hip fracture Ortho consult Nothing by mouth after midnight Continue pain treatments Bed rest until surgical repair Left eyebrow laceration Sutured in the ER Follow clinically Suture removals in 7-10 days Hypertension Continue baseline treatment Follow blood pressures Adjust treatments as needed Hold for any hypotension Dementia Supportive care DVT prophylaxis SCDs Physician Certification 2 Midnight Certification Type: Admission for Inpatient Services Order for Inpatient Services The services are ordered in accordance with Medicare regulations or non- Medicare payer requirements, as applicable. In the case of services not specified as inpatient-only, they are appropriately provided as inpatient services in accordance with the 2-midnight benchmark. Estimated LOS (days): 3 days is the estimated time the patient will need to remain in the hospital, assuming treatment plan goals are met and no additional complications. Post-Hospital Plan: Home Jaquan Boland MD Jun 11, 2017 17:40
[2017-06-11 17:50] VITALS: BP 158/73; PULSE 73; RESP 16; O2SAT 93
[2017-06-11 17:58] VITALS: BP 104/65; PULSE 72; RESP 17; O2SAT 97
[2017-06-11] MEDS ORDERED: PILL SPLITTER OTHER PRN (18:00)
--- NOTE | 2017-06-11 18:04 | PD ---
Physical Exam Date Seen by Provider: Jun 11, 2017 Time Seen by Provider: 18:03 Narrative I was asked to repair laceration. Please refer to my attendings note. Data Data Last Documented VS Vital Signs Date Time Temp Pulse Resp B/P (MAP) Pulse Ox O2 Delivery O2 Flow Rate FiO2 06/11/17 15:28 16 93 Room Air 06/11/17 15:22 97.6 82 157/74 (101) Orders Orders Ct Brain W/O Iv Contrast(Rout) (06/11/17 ) Pelvis, Ap Only (Routine) (06/11/17 ) Femur (Ap & Lat/2vws) (06/11/17 ) Lidocaine 1% Inj (50 Ml) (Xylocaine 1% I (06/11/17 15:30) Tetanus/Diphtheria Tox Adult (Tetanus/Di (06/11/17 15:30) Lidocaine Pf 1% Inj (Xylocaine-Mpf 1% In (06/11/17 15:45) Lidocaine Pf 1% Inj (Xylocaine-Mpf 1% In (06/11/17 15:36) Electrocardiogram (06/11/17 15:54) Complete Blood Count With Diff (06/11/17 15:54) Comprehensive Metabolic Panel (06/11/17 15:54) Prothrombin Time / Inr (Pt) (06/11/17 15:54) Act Partial Throm Time (Ptt) (06/11/17 15:54) Urinalysis - C+S If Indicated (06/11/17 15:54) Type And Screen (06/11/17 15:54) Chest, Single Ap (06/11/17 15:54) Iv Access Insert/Monitor (06/11/17 15:54) Oximetry (06/11/17 15:54) Ice/Cold Pack (06/11/17 15:54) Ecg Monitoring (06/11/17 15:54) Sodium Chloride 0.9% Flush (Ns Flush) (06/11/17 16:00) Admit Order (Ed Use Only) (06/11/17 ) Admit To Inpatient (06/11/17 ) Vital Signs (Adult) Q4H (06/11/17 16:46) Activity Bed Rest (06/11/17 16:46) Diet Regular Basic (06/11/17 Dinner) Sodium Chlor 0.9% 1000 Ml Inj (Ns 1000 M (06/11/17 16:46) Sodium Chloride 0.9% Flush (Ns Flush) (06/11/17 17:00) Sodium Chloride 0.9% Flush (Ns Flush) (06/11/17 21:00) Ondansetron Inj (Zofran Inj) (06/11/17 17:00) Complete Blood Count With Diff (06/12/17 06:00) Creatine Kinase (Cpk) (06/11/17 16:46) Creatine Kinase (Cpk) (06/11/17 22:46) Pt Request For Service (06/11/17 16:46) Ot Request For Service (06/11/17 16:46) Scd Bilateral/Knee High KIMBERLY.BID (06/11/17 16:46) Tramadol (Ultram) (06/11/17 17:00) Tramadol (Ultram) (06/11/17 17:00) Naloxone Inj (Narcan Inj) (06/11/17 17:00) Magnesium Hydroxide Liq (Milk Of Magnesi (06/11/17 17:00) Inpatient Certification (06/11/17 ) Consult Orthopedic (06/11/17 ) Npo After Midnight W/ Po Meds (06/12/17 Breakfast) Labs Laboratory Tests Test 06/11/17 16:20 White Blood Count 10.9 TH/MM3 Red Blood Count 3.62 MIL/MM3 Hemoglobin 11.2 GM/DL Hematocrit 33.0 % Mean Corpuscular Volume 91.0 FL Mean Corpuscular Hemoglobin 30.9 PG Mean Corpuscular Hemoglobin Concent 33.9 % Red Cell Distribution Width 16.0 % Platelet Count 236 TH/MM3 Mean Platelet Volume 7.8 FL Neutrophils (%) (Auto) 82.2 % Lymphocytes (%) (Auto) 8.8 % Monocytes (%) (Auto) 5.6 % Eosinophils (%) (Auto) 1.7 % Basophils (%) (Auto) 1.7 % Neutrophils # (Auto) 8.9 TH/MM3 Lymphocytes # (Auto) 1.0 TH/MM3 Monocytes # (Auto) 0.6 TH/MM3 Eosinophils # (Auto) 0.2 TH/MM3 Basophils # (Auto) 0.2 TH/MM3 CBC Comment DIFF FINAL Differential Comment Prothrombin Time 10.7 SEC Prothromb Time International Ratio 1.1 RATIO Activated Partial Thromboplast Time 22.5 SEC Blood Urea Nitrogen 34 MG/DL Creatinine 1.50 MG/DL Random Glucose 99 MG/DL Total Protein 7.2 GM/DL Albumin 3.2 GM/DL Calcium Level 8.7 MG/DL Alkaline Phosphatase 76 U/L Aspartate Amino Transf (AST/SGOT) 24 U/L Alanine Aminotransferase (ALT/SGPT) 28 U/L Total Bilirubin 0.5 MG/DL Sodium Level 139 MEQ/L Potassium Level 4.7 MEQ/L Chloride Level 107 MEQ/L Carbon Dioxide Level 26.0 MEQ/L Anion Gap 6 MEQ/L Estimat Glomerular Filtration Rate 33 ML/MIN MDM Medical Record Reviewed: Yes Supervised Visit with ZEN: No Procedures Procedure Narrative LACERATION LOCATION: left eyebrow LENGTH: 1 cm NUMBER OF STITCHES/JUAN: 6 sutures REPAIR: The area of the laceration was prepped with Betadine and sterilely draped. The laceration was infiltrated with 1% Xylocaine. The wound was copiously irrigated and explored without evidence of foreign body, tendon injury or neurovascular injury. The wound was closed using 5-0 Prolene. This was a 1 layer repair. A sterile dressing was applied. The patient was advised to keep the dressing clean and dry. Patient tolerated the procedure well. Cristian Paris Jun 11, 2017 18:04
[2017-06-11 20:30] VITALS: BP 178/88; PULSE 118; RESP 22; TEMP 97.7; O2SAT 95
[2017-06-11] MEDS: MEMANTINE HCL 10 MG TAB PO SCH (23:08)
[2017-06-11] MEDS: DONEPEZIL HCL 5 MG TAB PO SCH (23:08)
[2017-06-11] MEDS: traMADol HCL 50 MG TAB PO PRN (23:09)
[2017-06-11] MEDS: SODIUM CHLORIDE 0.9% FLUSH 10 ML FLUSH IV FLUSH SCH (23:20)
[2017-06-12] VITALS: BP 172/79; PULSE 119; RESP 22; TEMP 100.3; O2SAT 93
[2017-06-12] MEDS: MORPHINE SULFATE 2 MG/ML SYRINGE IV PUSH PRN (01:14)
[2017-06-12 02:29] LABS: AUTOMATED NEUTROPHIL # 8.4 TH/MM3 (1.8-7.7); BASOPHIL # 0.1 TH/MM3 (0-0.2); BASOPHIL % 0.7 % (0.0-2.0); EOSINOPHIL # 0.2 TH/MM3 (0-0.4); EOSINOPHIL % 1.8 % (0.0-4.0); HEMATOCRIT 29.9 % (35.0-46.0); HEMOGLOBIN 10.1 GM/DL (11.6-15.3); MEAN CELL VOLUME 91.9 FL (80.0-100.0); MEAN CORPUSCULAR HGB CONC 33.8 % (32.0-36.0); MEAN PLATELET VOLUME 7.9 FL (7.0-11.0); MONO % 6.7 % (0.0-8.0); MONOCYTE # 0.7 TH/MM3 (0-0.9); NEUT % 80.8 % (16.0-70.0); PLATELET COUNT 202 TH/MM3 (150-450); RED BLOOD COUNT 3.25 MIL/MM3 (4.00-5.30); RED CELL DISTRIBUTION WIDTH 15.6 % (11.6-17.2); WHITE BLOOD COUNT 10.4 TH/MM3 (4.0-11.0)
[2017-06-12 04:00] VITALS: BP 158/65; PULSE 85; RESP 20; TEMP 97.8; O2SAT 94
[2017-06-12] MEDS: SODIUM CHLOR 0.9% 1000 ML INJ 1,000 ML IV SCH ×2 (05:07→10:50)
[2017-06-12] MEDS: traMADol HCL 50 MG TAB PO PRN ×2 (05:16→15:59)
[2017-06-12] MEDS ORDERED: ACETAMINOPHEN 1000 MG/100 ML 0 ML IV ONE (07:00)
[2017-06-12] MEDS ORDERED: VANCOMYCIN HCL 1000 MG VIAL ONE (07:11)
[2017-06-12] MEDS ORDERED: BUPIVACAINE/EPINEPHRINE 0.25% PF 10 ML VIAL ONE (07:12)
[2017-06-12] MEDS ORDERED: SODIUM CHLOR 0.9% 250 ML INJ 250 ML ONE (07:12)
[2017-06-12] MEDS ORDERED: GENTAMICIN SULFATE 80 MG/2 ML VIAL ONE (07:12)
--- NOTE | 2017-06-12 07:18 | PD.ORT.PN ---
Subjective Subjective Remarks Dementia. Fell and has had laceration repair to left brow and has significant left hip pain. Objective Vitals Vital Signs Date Time Temp Pulse Resp B/P (MAP) Pulse Ox O2 Delivery O2 Flow Rate FiO2 06/12/17 04:00 97.8 85 20 158/65 (96) 94 06/12/17 00:00 100.3 119 22 172/79 (110) 93 06/11/17 20:30 97.7 118 22 178/88 (118) 95 06/11/17 19:41 06/11/17 18:42 16 06/11/17 17:50 73 16 158/73 (101) 93 06/11/17 17:50 16 93 Room Air 06/11/17 15:28 16 93 Room Air 06/11/17 15:22 97.6 82 16 157/74 (101) 93 I/O 06/11/17 06/11/17 06/11/17 06/12/17 06/12/17 06/12/17 07:00 15:00 23:00 07:00 15:00 23:00 Intake Total 1000 ml Balance 1000 ml Intake Oral 0 ml IV Total 1000 ml # Voids 2 # Bowel Movements 0 Result Diagram: 06/12/17 0204 06/11/17 1620 Other Results Laboratory Tests Test 06/11/17 16:20 Prothromb Time International Ratio 1.1 RATIO Prothrombin Time 10.7 SEC (9.8-11.6) Imaging Last 24 hours Impressions Chest X-Ray 06/11/17 1554 Signed Impressions: Service Date/Time: Sunday, June 11, 2017 16:20 - CONCLUSION: 1. Moderate-sized hiatal hernia. No active disease. Darnell Kam MD Objective Remarks Right upper extremity: Skin is intact with minimal swelling and bruising. Complains of some shoulder pain. Intact sensation distally with full extension and flexion of all fingers Left upper extremity: Full range of motion and neurovascularly intact Right lower extremity: Full range of motion and neurovascularly intact Left lower extremity: Pain to palpation of hip. Pain with any motion of hip. No pain with knee or ankle motion. Distally intact sensation with active flexion plantar flexion of foot. Good capillary refills Assessment & Plan Assessment and Plan Left femoral neck fracture Nothing by mouth Sign consents by family We'll plan on surgery this morning Bed rest until surgery X-rays show no fracture to the right proximal humerus Jerry Salgado Jr. Jun 12, 2017 07:18
[2017-06-12] MEDS ORDERED: ceFAZolin INJ 1,000 MG VIAL ONE (08:03)
--- NOTE | 2017-06-12 08:29 | PD.OP ---
cc: Raciel Holman MD Operative Report Date of Surgery: Jun 12, 2017 Preoperative Diagnosis: left hip impacted femoral neck fracture Postoperative Diagnosis: Procedure: Left hip pinning Anesthesia: Gen. Surgeon: Raciel Holman Four Slide Machine Setter(s): COLE Gamez PA-C Operation and Findings: Plan of activity: TTWB x3 wks, then 50% weightbearing Implants used: ITS Patient was seen and evaluated preoperatively. The patient has significant left hip pain from impacted femoral neck fracture. The risk and benefits of surgery were discussed in depth with the patient to include bleeding infection nonunion malunion, avascular necrosis and need for hip replacement painful hardware as well as medical competitions including but not stroke heart attack and . Informed consent was obtained. Operative site was marked. Patient was brought to the operating room and placed on fracture table. IV sedation was administered by anesthesiologist. Timeout procedure was performed. Hip and leg were prepped with alcohol followed by Hibiclens and draped in the usual sterile fashion. IV antibiotics were given prior to incision. Procedure began with evaluation of fracture under fluoroscopy. The left hip was gently manipulated. The fracture was impacted and appeared to be stable. Fluoroscopy was used to confirm reduction. A three cm incision was along the lateral aspect of the proximal femur . Subcutaneous tissue was dissected bluntly. Three guidepins were placed through the lateral cortex of the proximal femur. Guide pins were placed in an inverted triangle position. Guide pins were advanced across the fracture site into the femoral head. Fluoroscopy confirmed appropriate guidepin placement. The screw lengths were measured. A cannulated drill was placed over each of the guide pins. Appropriate length ITS 6.5 cannulated screws were placed over the guidepins. Good compression was applied across the fracture. Final fluoroscopy revealed well aligned fracture with well-placed hardware. Incision was closed with 3-0 Vicryl and gaston. Sterile dressings were applied. Patient was awakened and transferred to recovery room. Raciel Holman MD Jun 12, 2017 08:29
[2017-06-12] MEDS ORDERED: VITA2000 PO (08:52)
[2017-06-12] MEDS ORDERED: CALCTAB19 PO (08:52)
[2017-06-12] MEDS ORDERED: WHEEMIS3 (08:52)
[2017-06-12] MEDS ORDERED: XARE10TA PO (08:52)
[2017-06-12] MEDS ORDERED: WALKER/ADULT/FO1 MIS (08:52)
[2017-06-12] MEDS ORDERED: VITA500012 PO (08:52)
[2017-06-12] MEDS ORDERED: NORC5TAB PO (08:52)
[2017-06-12] MEDS ORDERED: *morphine SULFATE 4 MG/ML PERIprocedure ONLY ONE ×2 (09:00→09:32)
--- NOTE | 2017-06-12 09:25 | MB ---
cc: Raciel Chacon MD DATE: 06/12/2017 REASON FOR CONSULTATION: Left femoral neck fracture. CONSULTING PHYSICIAN: Dr. Jaquan Boland. HISTORY OF PRESENT ILLNESS: Kristine is an 87-year-old female who lives in an assisted living facility. She does have some early dementia. She tripped and fell on a rug. She fell and landed on her left side. She had immediate left hip pain. She presented to the Emergency Room where x-rays revealed an impacted left femoral neck fracture. She is currently awake and alert on the seventh floor. Her only complaint is her left hip. She did hit her head, but denies loss of consciousness. PAST MEDICAL HISTORY: Illnesses, dementia and hypertension. PAST SURGICAL HISTORY: Appendectomy. MEDICATIONS: 1. Tylenol. 2. Lisinopril. 3. Biotin. 4. Aspirin. 5. Citalopram. ALLERGIES: NO KNOWN DRUG ALLERGIES. FAMILY HISTORY: She states that her father had arthritis as well as vascular disease. SOCIAL HISTORY: The patient lives in an [facility]. She denies alcohol, tobacco or drug use. REVIEW OF SYSTEMS: The patient denies headache, visual changes, neck pain, chest pain, shortness of breath, abdominal pain, nausea, vomiting, recent weight loss, fevers or chills or numbness or tingling of extremities. She complains of left hip pain. The pain is worse with movement. LABORATORY DATA: The patient has white blood cell count of 10.4, hematocrit of 29.9, platelet count of 202. INR is 1.1. BUN is 34 and creatinine is 1.5. PHYSICAL EXAM: GENERAL: The patient is a pleasant 87-year-old female. She is awake, but does have some confusion. She does not clearly recall her fall. VITAL SIGNS: Temperature 97.8, pulse 85, respirations 20, blood pressure 158/65, O2 saturation 94% on room air. HEENT: Head: The patient is normocephalic. The patient has some bruising on her forehead, as well as a small laceration. Pupils are equal. NECK: Soft, nontender. The trachea is in the midline. ABDOMEN: Soft, nontender, nondistended. EXTREMITIES: Examination of the left arm reveals no pain with shoulder, elbow and wrist motion. She has good cap refill in all fingers. Skin is intact. Sensation is intact. Examination of the right arm reveals mild shoulder pain with motion. She has no pain with elbow or wrist motion. Skin is intact. Radial pulses palpable. Examination of right leg reveals no pain with hip, knee or ankle motion. Skin is intact. Dorsalis pedis pulses palpable. Sensation is intact. Examination of left leg reveals pain with any motion. She has no tenderness around her knee, tibia or ankle. Skin is intact. Dorsalis pedis pulses palpable. Sensation is intact. DIAGNOSTIC STUDIES: X-rays of left hip are reviewed. X-rays reveal an impacted left femoral neck fracture. IMPRESSION: 1. Early dementia. 2. Postmenopausal osteoporosis. 3. Hypertension. 4. Impacted left femoral neck fracture. PLAN: Treatment options were discussed with the patient including surgical and nonsurgical options. At this point, I would recommend surgery for left hip pinning. If fracture displaces, the patient will likely need a left hip hemiarthroplasty. The risks of surgery include bleeding, infection, injuries to arteries, nerves and blood vessels, nonunion, malunion, avascular necrosis, need for hip replacement, as well as medical complications including blood clot, stroke, heart attack and . All questions were answered. I will attempt to contact the patient's family for consents. A mid-level provider in my office, nurse practitioner or PA, may see this patient on a follow-up basis and continue to implement the objective of this plan including: Starting or adjusting medications, injections of muscle, tendon, bursa or joints, cast application, orthotic or brace application, physical therapy, further radiographic studies including x-ray, MRI, CT, ultrasounds or bone scan, vascular studies, neurologic studies, or other specialist consultations, and proceeding with surgical management as appropriate. Raciel MD JOHN Shah/DL/ , 06:46 AM , 07:15 AM YRIS
[2017-06-12] MEDS ORDERED: Post-op Orders (for Pharmacy) XX ONE (09:45)
[2017-06-12] MEDS: LISINOPRIL 10 MG TAB PO SCH (10:49)
[2017-06-12] MEDS: CITALOPRAM HYDROBROMIDE 20 MG TAB PO SCH (10:49)
[2017-06-12] MEDS: MEMANTINE HCL 10 MG TAB PO SCH ×2 (10:49→20:33)
[2017-06-12] MEDS: SODIUM CHLORIDE 0.9% FLUSH 10 ML FLUSH IV FLUSH SCH ×2 (10:50→20:37)
[2017-06-12] MEDS ORDERED: DO NOT ADM ANY ANTICOAGULANT DRUGS PRN (11:15)
--- NOTE | 2017-06-12 11:19 | HHI.PR ---
Subjective Remarks in no acute distress. had surgery earlier today. pain seems to be controlled at this time. Objective Vitals Vital Signs Date Time Temp Pulse Resp B/P (MAP) Pulse Ox O2 Delivery O2 Flow Rate FiO2 06/12/17 10:00 98.1 85 20 155/88 (110) 95 Nasal Cannula 2 06/12/17 09:45 88 20 158/91 (113) 95 Nasal Cannula 2 06/12/17 09:30 90 22 155/82 (106) 92 Nasal Cannula 2 06/12/17 09:15 111 22 158/85 (109) 94 Nasal Cannula 2 06/12/17 09:00 114 18 167/78 (107) 93 Nasal Cannula 2 06/12/17 08:45 97.6 97 20 15/72 (53) 98 Simple Mask 6 06/12/17 04:00 97.8 85 20 158/65 (96) 94 06/12/17 00:00 100.3 119 22 172/79 (110) 93 06/11/17 20:30 97.7 118 22 178/88 (118) 95 06/11/17 19:41 06/11/17 18:42 16 06/11/17 17:50 73 16 158/73 (101) 93 06/11/17 17:50 16 93 Room Air 06/11/17 15:28 16 93 Room Air 06/11/17 15:22 97.6 82 16 157/74 (101) 93 I/O 06/11/17 06/11/17 06/11/17 06/12/17 06/12/17 06/12/17 07:00 15:00 23:00 07:00 15:00 23:00 Intake Total 1000 ml 700 ml Output Total 15 ml Balance 1000 ml 685 ml Intake Oral 0 ml IV Total 1000 ml Other 700 ml Output Estimated Blood Loss 15 ml # Voids 2 # Bowel Movements 0 Result Diagram: 06/12/17 0204 06/11/17 1620 Imaging Last Impressions Chest X-Ray 06/11/17 1554 Signed Impressions: Service Date/Time: Sunday, June 11, 2017 16:20 - CONCLUSION: 1. Moderate-sized hiatal hernia. No active disease. Darnell Kam MD Pelvis X-Ray 06/11/17 0000 Signed Impressions: Service Date/Time: Sunday, June 11, 2017 15:33 - CONCLUSION: Acute left subcapital femoral neck fracture. Kris Nino Jr., MD Head CT 06/11/17 0000 Signed Impressions: Service Date/Time: Sunday, June 11, 2017 16:43 - CONCLUSION: 1. No acute findings. Darnell Kam MD Femur X-Ray 06/11/17 0000 Signed Impressions: Service Date/Time: Sunday, June 11, 2017 15:33 - CONCLUSION: 1. Mildly displaced subcapital fracture proximal left femur. Darnell Kam MD Objective Remarks GENERAL: This is a well-nourished, well-developed patient, in no apparent distress. CARDIOVASCULAR: Regular rate and regular rhythm without murmurs, gallops, or rubs. RESPIRATORY: Clear to auscultation. Breath sounds equal bilaterally. No wheezes , rales, or rhonchi. GASTROINTESTINAL: Abdomen soft, non-tender, nondistended. Normal, active bowel sounds MUSCULOSKELETAL: Extremities without clubbing, cyanosis, or edema. NEURO: Awake but demented. Procedures left hip pinning. Medications and IVs Inpatient Medications Acetaminophen/ Hydrocodone Bitart ([place] 5-325 Mg) 1 tab Q4H PRN PO PAIN 3<10 ; Start 06/12/17 at 09:45; Status UNV Cefazolin Sodium 1000 mg/Sodium Chloride 100 ml @ 200 mls/hr Q6H IV ; Start at 09:45; Stop 06/12/17 at 22:14; Status UNV Cholecalciferol (Vitamin D3) 5,000 units DAILY PO ; Start 06/13/17 at 09:00; Status UNV Citalopram Hydrobromide (CeleXA) 10 mg DAILY PO Last administered on 06/12/17at 10:49; Start 06/12/17 at 09:00 Donepezil HCl (Aricept) 5 mg HS PO Last administered on 06/11/17at 23:08; Start 06/11/17 at 21:00 Enoxaparin Sodium (Lovenox Inj) 30 mg Q24H SQ ; Start 06/12/17 at 09:45; Status UNV Ergocalciferol (Drisdol) 50,000 units ONCE ONCE PO ; Start 06/12/17 at 09:45; Stop 06/12/17 at 09:46; Status UNV Lidocaine HCl (Xylocaine 1% Inj (50 ml)) 10 ml ONCE ONCE INFIL ; Start at 15:30; Stop 06/11/17 at 15:31; Status DC Lidocaine HCl (Xylocaine-Mpf 1% Inj) 30 ml ONCE ONCE INFIL Last administered on 06/11/17at 16:32; Start 06/11/17 at 15:45; Stop 06/11/17 at 15:46; Status DC Lisinopril (Prinivil) 10 mg DAILY PO Last administered on 06/12/17at 10:49; Start 06/12/17 at 09:00 Magnesium Hydroxide (Milk Of Magnesia Liq) 30 ml Q12H PRN PO Mild constipation ; Start 06/11/17 at 17:00 Memantine (Namenda) 10 mg BID PO Last administered on 06/12/17at 10:49; Start at 21:00 Miscellaneous (Pill Splitter) 1 ea UNSCH PRN OTHER SEE LABEL COMMENTS; Start at 18:00 Miscellaneous Information ALL NURSING DEPARTME... UNSCH PRN .XX SEE LABEL COMMENTS; Start 06/12/17 at 11:15; Stop 06/13/17 at 11:14 Miscellaneous Information (Post-op Orders (for Pharmacy)) STAT ONCE XX ; Start 06/12/17 at 09:45; Stop 06/12/17 at 09:46; Status UNV Morphine Sulfate (Morphine Inj) 2 mg Q3H PRN IV PUSH breakthrough pain Last administered on 06/12/17at 01:14; Start 06/12/17 at 01:00 Naloxone HCl (Narcan Inj) 0.4 mg UNSCH PRN IV PUSH SEE LABEL COMMENTS; Start at 17:00 Ondansetron HCl (Zofran Inj) 4 mg Q6H PRN IVP NAUSEA OR VOMITING; Start at 17:00 Sodium Chloride (NS Flush) 2 ml BID IV FLUSH Last administered on 06/12/17at 10: 50; Start 06/11/17 at 21:00 Tetanus/ Diphtheria Toxoids (Tetanus/ Diphtheria Tox Adult) 0.5 ml ONCE ONCE IM Last administered on 06/11/17at 16:36; Start 06/11/17 at 15:30; Stop 06/11/17 at 15:31; Status DC Tramadol HCl (Ultram) 100 mg Q4H PRN PO PAIN SCALE 6 TO 10 Last administered on 06/12/17at 05:16; Start 06/11/17 at 17:00 A/P Problem List: (1) Laceration of left eyebrow ICD Code: S01.112A - Laceration without foreign body of left eyelid and periocular area, initial encounter (2) Hip fracture, left ICD Code: S72.002A - Fracture of unspecified part of neck of left femur, initial encounter for closed fracture (3) Dementia ICD Code: F03.90 - Unspecified dementia without behavioral disturbance (4) Hypertension ICD Code: I10 - Essential (primary) hypertension Assessment and Plan Left hip fracture Ortho consulted- s/p left hip pinning. Continue pain control. management per ortho. Left eyebrow laceration Sutured in the ER Follow clinically Suture removals in 7-10 days Hypertension Continue baseline treatment Follow blood pressures Adjust treatments as needed Hold for any hypotension Dementia continue Aricept and Namenda DVT prophylaxis with subq Lovenox Problem Qualifiers (1) Hip fracture, left: Qualified Codes: S72.002A - Fracture of unspecified part of neck of left femur , initial encounter for closed fracture Luis Cat MD Jun 12, 2017 11:19
[2017-06-12 12:00] VITALS: BP 158/72; PULSE 75; RESP 17; TEMP 97; O2SAT 92
[2017-06-12] MEDS ORDERED: GLYCOPYRROLATE 1 MG/5 ML SYRINGE IV PUSH ONE (12:00)
[2017-06-12] MEDS ORDERED: STERILE WATER FOR INJECTION 20 ML VIAL IV ONE (12:00)
[2017-06-12] MEDS ORDERED: ONDANSETRON HCL 4 MG/2 ML VIAL IV ONE (12:00)
[2017-06-12] MEDS ORDERED: DEXAMETHASONE SOD PHOS 4 MG/ML VIAL IV ONE (12:00)
[2017-06-12] MEDS ORDERED: ePHEDrine/NS 25 MG/5 ML SYRINGE IV ONE (12:00)
[2017-06-12] MEDS ORDERED: NEOSTIGMINE 5 MG/5 ML SYRINGE IV PUSH ONE (12:00)
[2017-06-12] MEDS ORDERED: PROPOFOL 200 MG/20 ML AMP IV ONE (12:00)
[2017-06-12] MEDS ORDERED: LIDOCAINE HCL 1% PF 5 ML SYRINGE OTHER ONE (12:00)
[2017-06-12] MEDS ORDERED: PHENYLEPH/NS 1000 MCG/10 ML SYR IV ONE (12:00)
[2017-06-12] MEDS ORDERED: ROCURONIUM INJ 50 MG/5 ML SYRINGE IV PUSH ONE (12:00)
[2017-06-12] MEDS ORDERED: ERGOCALCIFEROL (VIT D2) 50,000 UNIT CAP PO ONE (12:30)
--- NOTE | 2017-06-12 12:49 | RADRPT ---
EXAM DATE/TIME: 06/12/2017 08:21 [facility] COMPARISON: No previous studies available for comparison. INDICATIONS : Left hip pinning. MEDICAL HISTORY : Hypertension. Anticoagulant therapy. SURGICAL HISTORY : Appendectomy. ENCOUNTER: Initial ACUITY: 1 day PAIN SCORE: Non-responsive. LOCATION: Left hip. FINDINGS: 3 screws are noted within the left proximal femur status post ORIF. CONCLUSION: Status post ORIF of left proximal femur fracture. Low Torre MD on June 12, 2017 at 12:47 Board Certified Radiologist. This report was verified electronically.
[2017-06-12 16:00] VITALS: BP 149/74; PULSE 116; RESP 17; TEMP 97.4; O2SAT 95
[2017-06-12 20:00] VITALS: BP 161/76; PULSE 74; RESP 20; TEMP 97.7; O2SAT 95
[2017-06-12] MEDS: DONEPEZIL HCL 5 MG TAB PO SCH (20:33)
[2017-06-12] MEDS: ENOXAPARIN SODIUM 30 MG/0.3 ML SYRINGE SQ SCH (20:37)
--- NOTE | 2017-06-12 22:48 | EKG ---
Date Performed: 06/11/2017 Time Performed: 16:18:25 PTAGE: 87 years EKG: SINUS TACHYCARDIA MARKED LEFT AXIS DEVIATION LEFT VENTRICULAR HYPERTROPHY AND ST-T CHANGE P OSSIBLE SEPTAL MYOCARDIAL INFARCTION ABNORMAL ECG PREVIOUS TRACING : 05/15/2017 17.40 Compared to previous tracing, rate faster DOCTOR: Wilbert Estrella Interpretating Date/Time 06/12/2017 22:47:40
[2017-06-13] VITALS (7 sets, daily range): BP systolic 138–167; BP diastolic 63–77; PULSE 74–83; RESP 20–22; TEMP 97.1–98.5; O2SAT 92–95
[2017-06-13] MEDS: SODIUM CHLOR 0.9% 1000 ML INJ 1,000 ML IV SCH ×2 (02:08→16:58)
[2017-06-13 03:46] LABS: HEMATOCRIT 29.1 % (35.0-46.0); HEMOGLOBIN 9.7 GM/DL (11.6-15.3)
--- NOTE | 2017-06-13 07:01 | PD.ORT.PN ---
Subjective Subjective Remarks POD 1 s/p PCP left hip doing well. resting comfortably Objective Vitals Vital Signs Date Time Temp Pulse Resp B/P (MAP) Pulse Ox O2 Delivery O2 Flow Rate FiO2 06/13/17 00:00 97.7 75 22 138/63 (88) 95 06/12/17 20:00 97.7 74 20 161/76 (104) 95 06/12/17 16:00 97.4 116 17 149/74 (99) 95 06/12/17 12:00 97.0 75 17 158/72 (100) 92 06/12/17 10:00 98.1 85 20 155/88 (110) 95 Nasal Cannula 2 06/12/17 09:45 88 20 158/91 (113) 95 Nasal Cannula 2 06/12/17 09:30 90 22 155/82 (106) 92 Nasal Cannula 2 06/12/17 09:15 111 22 158/85 (109) 94 Nasal Cannula 2 06/12/17 09:00 114 18 167/78 (107) 93 Nasal Cannula 2 06/12/17 08:45 97.6 97 20 15/72 (53) 98 Simple Mask 6 I/O 06/12/17 06/12/17 06/12/17 06/13/17 06/13/17 06/13/17 07:00 15:00 23:00 07:00 15:00 23:00 Intake Total 1000 ml 800 ml 200 ml Output Total 15 ml 500 ml Balance 1000 ml 785 ml -300 ml Intake Oral 0 ml 200 ml IV Total 1000 ml 100 ml Other 700 ml Output Urine Total 500 ml Estimated Blood Loss 15 ml # Voids 2 # Bowel Movements 0 0 Result Diagram: 06/13/17 0330 06/11/17 1620 Imaging Last 24 hours Impressions Chest X-Ray 06/11/17 1554 Signed Impressions: Service Date/Time: Sunday, June 11, 2017 16:20 - CONCLUSION: 1. Moderate-sized hiatal hernia. No active disease. Darnell aKm MD Objective Remarks LLE: dressings clean and dry. intact. NVI Assessment & Plan Assessment and Plan 1) Left femoral neck fracture s/p PCP - POD 1 -TTWB -daily dressing changes POD 2 -CM for SNF placement -plan for DC to SNF when bed available and stable -f/u with Chacon or PA in 2 weeks Aron Dasilva PA/Plunger Scoop Operator PA Jun 13, 2017 07:01
[2017-06-13] MEDS: SODIUM CHLORIDE 0.9% FLUSH 10 ML FLUSH IV FLUSH SCH ×2 (07:50→21:41)
--- NOTE | 2017-06-13 09:14 | HHI.PR ---
Subjective Remarks in no acute distress. looks fairly comfortable. Objective Vitals Vital Signs Date Time Temp Pulse Resp B/P (MAP) Pulse Ox O2 Delivery O2 Flow Rate FiO2 06/13/17 08:38 92 Nasal Cannula 2.00 06/13/17 08:00 97.2 81 20 167/72 (103) 95 06/13/17 04:00 97.1 74 20 148/65 (92) 94 06/13/17 00:00 97.7 75 22 138/63 (88) 95 06/12/17 20:00 97.7 74 20 161/76 (104) 95 06/12/17 16:00 97.4 116 17 149/74 (99) 95 06/12/17 12:00 97.0 75 17 158/72 (100) 92 06/12/17 10:00 98.1 85 20 155/88 (110) 95 Nasal Cannula 2 06/12/17 09:45 88 20 158/91 (113) 95 Nasal Cannula 2 06/12/17 09:30 90 22 155/82 (106) 92 Nasal Cannula 2 06/12/17 09:15 111 22 158/85 (109) 94 Nasal Cannula 2 I/O 06/12/17 06/12/17 06/12/17 06/13/17 06/13/17 06/13/17 07:00 15:00 23:00 07:00 15:00 23:00 Intake Total 1000 ml 800 ml 200 ml 240 ml 220 ml Output Total 15 ml 500 ml 350 ml Balance 1000 ml 785 ml -300 ml -110 ml 220 ml Intake Oral 0 ml 200 ml 240 ml 120 ml IV Total 1000 ml 100 ml 100 ml Other 700 ml Output Urine Total 500 ml 350 ml Estimated Blood Loss 15 ml # Voids 2 # Bowel Movements 0 0 0 Result Diagram: 06/13/17 0330 06/11/17 1620 Imaging Last Impressions Hip X-Ray 06/12/17 0000 Signed Impressions: Service Date/Time: Monday, June 12, 2017 08:21 - CONCLUSION: Status post ORIF of left proximal femur fracture. Low Torre MD Chest X-Ray 06/11/17 1554 Signed Impressions: Service Date/Time: Sunday, June 11, 2017 16:20 - CONCLUSION: 1. Moderate-sized hiatal hernia. No active disease. Darnell Kam MD Pelvis X-Ray 06/11/17 0000 Signed Impressions: Service Date/Time: Sunday, June 11, 2017 15:33 - CONCLUSION: Acute left subcapital femoral neck fracture. Kris Nino Jr., MD Head CT 06/11/17 0000 Signed Impressions: Service Date/Time: Sunday, June 11, 2017 16:43 - CONCLUSION: 1. No acute findings. Darnell Kam MD Femur X-Ray 06/11/17 0000 Signed Impressions: Service Date/Time: Sunday, June 11, 2017 15:33 - CONCLUSION: 1. Mildly displaced subcapital fracture proximal left femur. Darnell Kam MD Objective Remarks GENERAL: This is a well-nourished, well-developed patient, in no apparent distress. CARDIOVASCULAR: Regular rate and regular rhythm without murmurs, gallops, or rubs. RESPIRATORY: Clear to auscultation. Breath sounds equal bilaterally. No wheezes , rales, or rhonchi. GASTROINTESTINAL: Abdomen soft, non-tender, nondistended. Normal, active bowel sounds MUSCULOSKELETAL: Extremities without clubbing, cyanosis, or edema. NEURO: Awake but demented. Procedures left hip pinning. Medications and IVs Inpatient Medications Acetaminophen/ Hydrocodone Bitart ([place] 5-325 Mg) 1 tab Q4H PRN PO PAIN 3<10 ; Start 06/12/17 at 16:30 Cefazolin Sodium 1000 mg/Sodium Chloride 100 ml @ 200 mls/hr Q6H IV Last administered on 06/13/17at 02:09; Start 06/12/17 at 14:00; Stop 06/13/17 at 02:29 ; Status DC Cholecalciferol (Vitamin D3) 5,000 units DAILY PO ; Start 06/13/17 at 09:00 Citalopram Hydrobromide (CeleXA) 10 mg DAILY PO Last administered on 06/12/17at 10:49; Start 06/12/17 at 09:00 Donepezil HCl (Aricept) 5 mg HS PO Last administered on 06/12/17at 20:33; Start 06/11/17 at 21:00 Enoxaparin Sodium (Lovenox Inj) 30 mg Q24H SQ Last administered on 06/12/17at 20 :37; Start 06/12/17 at 21:00 Ergocalciferol (Drisdol) 50,000 units ONCE ONCE PO Last administered on at 12:51; Start 06/12/17 at 12:30; Stop 06/12/17 at 12:31; Status DC Lidocaine HCl (Xylocaine 1% Inj (50 ml)) 10 ml ONCE ONCE INFIL ; Start at 15:30; Stop 06/11/17 at 15:31; Status DC Lidocaine HCl (Xylocaine-Mpf 1% Inj) 30 ml ONCE ONCE INFIL Last administered on 06/11/17at 16:32; Start 06/11/17 at 15:45; Stop 06/11/17 at 15:46; Status DC Lisinopril (Prinivil) 10 mg DAILY PO Last administered on 06/12/17at 10:49; Start 06/12/17 at 09:00 Magnesium Hydroxide (Milk Of Magnesia Liq) 30 ml Q12H PRN PO Mild constipation ; Start 06/11/17 at 17:00 Memantine (Namenda) 10 mg BID PO Last administered on 06/12/17at 20:33; Start at 21:00 Miscellaneous (Pill Splitter) 1 ea UNSCH PRN OTHER SEE LABEL COMMENTS; Start at 18:00 Miscellaneous Information ALL NURSING DEPARTME... UNSCH PRN .XX SEE LABEL COMMENTS; Start 06/12/17 at 11:15; Stop 06/13/17 at 11:14 Miscellaneous Information (Post-op Orders (for Pharmacy)) STAT ONCE XX ; Start 06/12/17 at 09:45; Stop 06/12/17 at 12:15; Status DC Morphine Sulfate (Morphine Inj) 2 mg Q3H PRN IV PUSH breakthrough pain Last administered on 06/12/17at 01:14; Start 06/12/17 at 01:00 Naloxone HCl (Narcan Inj) 0.4 mg UNSCH PRN IV PUSH SEE LABEL COMMENTS; Start at 17:00 Ondansetron HCl (Zofran Inj) 4 mg Q6H PRN IVP NAUSEA OR VOMITING; Start at 17:00 Sodium Chloride (NS Flush) 2 ml BID IV FLUSH Last administered on 06/12/17at 10: 50; Start 06/11/17 at 21:00 Tetanus/ Diphtheria Toxoids (Tetanus/ Diphtheria Tox Adult) 0.5 ml ONCE ONCE IM Last administered on 06/11/17at 16:36; Start 06/11/17 at 15:30; Stop 06/11/17 at 15:31; Status DC Tramadol HCl (Ultram) 100 mg Q4H PRN PO PAIN SCALE 6 TO 10 Last administered on 06/12/17at 15:59; Start 06/11/17 at 17:00; Stop 06/12/17 at 16:19; Status DC A/P Problem List: (1) Laceration of left eyebrow ICD Code: S01.112A - Laceration without foreign body of left eyelid and periocular area, initial encounter (2) Hip fracture, left ICD Code: S72.002A - Fracture of unspecified part of neck of left femur, initial encounter for closed fracture (3) Dementia ICD Code: F03.90 - Unspecified dementia without behavioral disturbance (4) Hypertension ICD Code: I10 - Essential (primary) hypertension Assessment and Plan Left hip fracture Ortho consulted- s/p left hip pinning. Continue pain control. continue PT. management per ortho. Left eyebrow laceration Sutured in the ER Follow clinically Suture removals in 7-10 days Hypertension Continue baseline treatment Follow blood pressures Adjust treatments as needed Hold for any hypotension Dementia continue Aricept and Namenda DVT prophylaxis with subq Lovenox Discharge Planning when cleared by ortho. dc planning to SNF. Problem Qualifiers (1) Hip fracture, left: Qualified Codes: S72.002A - Fracture of unspecified part of neck of left femur , initial encounter for closed fracture Luis Cat MD Jun 13, 2017 09:13
[2017-06-13] MEDS: CHOLECALCIFEROL (VIT D3) 5000 UNIT CAP PO SCH (10:41)
[2017-06-13] MEDS: CITALOPRAM HYDROBROMIDE 20 MG TAB PO SCH (10:43)
[2017-06-13] MEDS: MEMANTINE HCL 10 MG TAB PO SCH ×2 (10:44→21:39)
[2017-06-13] MEDS: LISINOPRIL 10 MG TAB PO SCH (10:44)
[2017-06-13 12:43] LABS: BICARBONATE 24.3 MEQ/L (21.0-32.0); CALCIUM 7.7 MG/DL (8.5-10.1); CREATININE 1.01 MG/DL (0.50-1.00)
[2017-06-13] MEDS: DONEPEZIL HCL 5 MG TAB PO SCH (21:39)
[2017-06-13] MEDS: ENOXAPARIN SODIUM 30 MG/0.3 ML SYRINGE SQ SCH (21:39)
[2017-06-14] VITALS: BP 145/65; PULSE 82; RESP 20; TEMP 99.1; O2SAT 92
[2017-06-14] MEDS: MORPHINE SULFATE 2 MG/ML SYRINGE IV PUSH PRN (02:39)
[2017-06-14 08:00] VITALS: BP 185/75; PULSE 80; RESP 20; TEMP 97.6; O2SAT 95
[2017-06-14 08:44] VITALS: O2SAT 94
[2017-06-14] MEDS: SODIUM CHLORIDE 0.9% FLUSH 10 ML FLUSH IV FLUSH SCH ×2 (09:00→21:20)
--- NOTE | 2017-06-14 09:22 | HHI.PR ---
Subjective Remarks in no acute distress. pain is controlled. no new complaints. family at the bedside. Objective Vitals Vital Signs Date Time Temp Pulse Resp B/P (MAP) Pulse Ox O2 Delivery O2 Flow Rate FiO2 06/14/17 08:00 97.6 80 20 185/75 (111) 95 06/14/17 00:00 99.1 82 20 145/65 (91) 92 06/13/17 20:00 98.0 83 20 166/77 (106) 94 06/13/17 19:43 Nasal Cannula 2.00 06/13/17 16:00 98.5 80 20 165/74 (104) 95 06/13/17 12:00 98.0 82 20 153/70 (97) 95 I/O 06/13/17 06/13/17 06/13/17 06/14/17 06/14/17 06/14/17 07:00 15:00 23:00 07:00 15:00 23:00 Intake Total 240 ml 220 ml 1550 ml 240 ml 120 ml Output Total 350 ml 900 ml Balance -110 ml 220 ml 650 ml 240 ml 120 ml Intake Oral 240 ml 120 ml 550 ml 240 ml 120 ml IV Total 100 ml 1000 ml Output Urine Total 350 ml 900 ml # Voids 4 # Bowel Movements 0 0 Result Diagram: 06/13/17 0330 06/13/17 1145 Imaging Last Impressions Hip X-Ray 06/12/17 0000 Signed Impressions: Service Date/Time: Monday, June 12, 2017 08:21 - CONCLUSION: Status post ORIF of left proximal femur fracture. Low Torre MD Chest X-Ray 06/11/17 1554 Signed Impressions: Service Date/Time: Sunday, June 11, 2017 16:20 - CONCLUSION: 1. Moderate-sized hiatal hernia. No active disease. Darnell Kam MD Pelvis X-Ray 06/11/17 0000 Signed Impressions: Service Date/Time: Sunday, June 11, 2017 15:33 - CONCLUSION: Acute left subcapital femoral neck fracture. Kris Nino Jr., MD Head CT 06/11/17 0000 Signed Impressions: Service Date/Time: Sunday, June 11, 2017 16:43 - CONCLUSION: 1. No acute findings. Darnell Kam MD Femur X-Ray 06/11/17 0000 Signed Impressions: Service Date/Time: Sunday, June 11, 2017 15:33 - CONCLUSION: 1. Mildly displaced subcapital fracture proximal left femur. Darnell Kam MD Objective Remarks GENERAL: This is a well-nourished, well-developed patient, in no apparent distress. CARDIOVASCULAR: Regular rate and regular rhythm without murmurs, gallops, or rubs. RESPIRATORY: Clear to auscultation. Breath sounds equal bilaterally. No wheezes , rales, or rhonchi. GASTROINTESTINAL: Abdomen soft, non-tender, nondistended. Normal, active bowel sounds MUSCULOSKELETAL: Extremities without clubbing, cyanosis, or edema. NEURO: Awake but demented. Procedures left hip pinning. Medications and IVs Inpatient Medications Acetaminophen/ Hydrocodone Bitart ([place] 5-325 Mg) 1 tab Q4H PRN PO PAIN 3<10 ; Start 06/12/17 at 16:30 Cefazolin Sodium 1000 mg/Sodium Chloride 100 ml @ 200 mls/hr Q6H IV Last administered on 06/13/17at 02:09; Start 06/12/17 at 14:00; Stop 06/13/17 at 02:29 ; Status DC Cholecalciferol (Vitamin D3) 5,000 units DAILY PO Last administered on at 10:41; Start 06/13/17 at 09:00 Citalopram Hydrobromide (CeleXA) 10 mg DAILY PO Last administered on 06/13/17at 10:43; Start 06/12/17 at 09:00 Donepezil HCl (Aricept) 5 mg HS PO Last administered on 06/13/17at 21:39; Start 06/11/17 at 21:00 Enoxaparin Sodium (Lovenox Inj) 30 mg Q24H SQ Last administered on 06/13/17at 21 :39; Start 06/12/17 at 21:00 Ergocalciferol (Drisdol) 50,000 units ONCE ONCE PO Last administered on at 12:51; Start 06/12/17 at 12:30; Stop 06/12/17 at 12:31; Status DC Lidocaine HCl (Xylocaine 1% Inj (50 ml)) 10 ml ONCE ONCE INFIL ; Start at 15:30; Stop 06/11/17 at 15:31; Status DC Lidocaine HCl (Xylocaine-Mpf 1% Inj) 30 ml ONCE ONCE INFIL Last administered on 06/11/17at 16:32; Start 06/11/17 at 15:45; Stop 06/11/17 at 15:46; Status DC Lisinopril (Prinivil) 10 mg DAILY PO Last administered on 06/13/17at 10:44; Start 06/12/17 at 09:00 Magnesium Hydroxide (Milk Of Magnesia Liq) 30 ml Q12H PRN PO Mild constipation ; Start 06/11/17 at 17:00 Memantine (Namenda) 10 mg BID PO Last administered on 06/13/17at 21:39; Start at 21:00 Miscellaneous (Pill Splitter) 1 ea UNSCH PRN OTHER SEE LABEL COMMENTS; Start at 18:00 Miscellaneous Information ALL NURSING DEPARTME... UNSCH PRN .XX SEE LABEL COMMENTS; Start 06/12/17 at 11:15; Stop 06/13/17 at 11:14; Status DC Miscellaneous Information (Post-op Orders (for Pharmacy)) STAT ONCE XX ; Start 06/12/17 at 09:45; Stop 06/12/17 at 12:15; Status DC Morphine Sulfate (Morphine Inj) 2 mg Q3H PRN IV PUSH breakthrough pain Last administered on 06/14/17at 02:39; Start 06/12/17 at 01:00 Naloxone HCl (Narcan Inj) 0.4 mg UNSCH PRN IV PUSH SEE LABEL COMMENTS; Start at 17:00 Ondansetron HCl (Zofran Inj) 4 mg Q6H PRN IVP NAUSEA OR VOMITING; Start at 17:00 Sodium Chloride (NS Flush) 2 ml BID IV FLUSH Last administered on 06/13/17at 21: 41; Start 06/11/17 at 21:00 Tetanus/ Diphtheria Toxoids (Tetanus/ Diphtheria Tox Adult) 0.5 ml ONCE ONCE IM Last administered on 06/11/17at 16:36; Start 06/11/17 at 15:30; Stop 06/11/17 at 15:31; Status DC Tramadol HCl (Ultram) 100 mg Q4H PRN PO PAIN SCALE 6 TO 10 Last administered on 06/12/17at 15:59; Start 06/11/17 at 17:00; Stop 06/12/17 at 16:19; Status DC A/P Problem List: (1) Laceration of left eyebrow ICD Code: S01.112A - Laceration without foreign body of left eyelid and periocular area, initial encounter (2) Hip fracture, left ICD Code: S72.002A - Fracture of unspecified part of neck of left femur, initial encounter for closed fracture (3) Dementia ICD Code: F03.90 - Unspecified dementia without behavioral disturbance (4) Hypertension ICD Code: I10 - Essential (primary) hypertension Assessment and Plan Left hip fracture Ortho consulted- s/p left hip pinning. Continue pain control. continue PT. management per ortho. Left eyebrow laceration Sutured in the ER Follow clinically Suture removals in 7-10 days Hypertension Continue baseline treatment Follow blood pressures Adjust treatments as needed Hold for any hypotension Dementia continue Aricept and Namenda DVT prophylaxis with subq Lovenox Discharge Planning dc to SNF. see med list. f/u; pcp and ortho. d/w the patient and family. previously d/w the case management. time spent 35 min. Problem Qualifiers (1) Hip fracture, left: Qualified Codes: S72.002A - Fracture of unspecified part of neck of left femur , initial encounter for closed fracture Luis Cat MD Jun 14, 2017 09:22
--- NOTE | 2017-06-14 09:24 | HHI.DS ---
Discharge Summary Admission Date Jun 11, 2017 at 16:56 Discharge Date: Jun 14, 2017 Admitting Diagnosis hip fracture (1) Laceration of left eyebrow ICD Code: S01.112A - Laceration without foreign body of left eyelid and periocular area, initial encounter Diagnosis: Principal (2) Hip fracture, left ICD Code: S72.002A - Fracture of unspecified part of neck of left femur, initial encounter for closed fracture Diagnosis: Principal (3) Dementia ICD Code: F03.90 - Unspecified dementia without behavioral disturbance Diagnosis: Secondary (4) Hypertension ICD Code: I10 - Essential (primary) hypertension Diagnosis: Secondary Procedures left hip pinning. Brief History - From Admission Mrs. Dowd is an 87-year-old female. She was at her assisted living facility and tripped and fell on a rug. With the fall she sustained a left hip fracture. Baseline medical conditions or dementia and hypertension. Her only prior surgery is an appendectomy when she was young. Primary complaint is left hip pain. No loss of consciousness or trauma to the head. She also had a laceration at her left eyebrow which has been repaired. She has no other complaints at this time. CBC/BMP: 06/13/17 0330 06/13/17 1145 Significant Findings Laboratory Tests Test 06/11/17 16:20 06/11/17 18:50 06/12/17 02:04 06/13/17 03:30 Red Blood Count 3.62 MIL/MM3 (4.00-5.30) 3.25 MIL/MM3 (4.00-5.30) Hemoglobin 11.2 GM/DL (11.6-15.3) 10.1 GM/DL (11.6-15.3) 9.7 GM/DL (11.6-15.3) Hematocrit 33.0 % (35.0-46.0) 29.9 % (35.0-46.0) 29.1 % (35.0-46.0) Neutrophils (%) (Auto) 82.2 % (16.0-70.0) 80.8 % (16.0-70.0) Lymphocytes (%) (Auto) 8.8 % (9.0-44.0) Neutrophils # (Auto) 8.9 TH/MM3 (1.8-7.7) 8.4 TH/MM3 (1.8-7.7) Activated Partial Thromboplast Time 22.5 SEC (24.3-30.1) Blood Urea Nitrogen 34 MG/DL (7-18) Creatinine 1.50 MG/DL (0.50-1.00) Albumin 3.2 GM/DL (3.4-5.0) Estimat Glomerular Filtration Rate 33 ML/MIN (>89) Total Creatine Kinase 329 U/L (26-192) 416 U/L (26-192) Creatine Kinase MB 5.6 NG/ML (0.5-3.6) 5.4 NG/ML (0.5-3.6) 25-Hydroxy Vitamin D Total 18.4 ng/ML (30-100) Test 06/13/17 11:45 Blood Urea Nitrogen 21 MG/DL (7-18) Creatinine 1.01 MG/DL (0.50-1.00) Calcium Level 7.7 MG/DL (8.5-10.1) Chloride Level 109 MEQ/L (98-107) Estimat Glomerular Filtration Rate 52 ML/MIN (>89) Imaging Last Impressions Hip X-Ray 06/12/17 0000 Signed Impressions: Service Date/Time: Monday, June 12, 2017 08:21 - CONCLUSION: Status post ORIF of left proximal femur fracture. Low Torre MD Chest X-Ray 06/11/17 1554 Signed Impressions: Service Date/Time: Sunday, June 11, 2017 16:20 - CONCLUSION: 1. Moderate-sized hiatal hernia. No active disease. Darnell Kam MD Pelvis X-Ray 06/11/17 0000 Signed Impressions: Service Date/Time: Sunday, June 11, 2017 15:33 - CONCLUSION: Acute left subcapital femoral neck fracture. Kris Nino Jr., MD Head CT 06/11/17 0000 Signed Impressions: Service Date/Time: Sunday, June 11, 2017 16:43 - CONCLUSION: 1. No acute findings. Darnell Kam MD Femur X-Ray 06/11/17 0000 Signed Impressions: Service Date/Time: Sunday, June 11, 2017 15:33 - CONCLUSION: 1. Mildly displaced subcapital fracture proximal left femur. Darnell Kam MD PE at Discharge GENERAL: This is a well-nourished, well-developed patient, in no apparent distress. CARDIOVASCULAR: Regular rate and regular rhythm without murmurs, gallops, or rubs. RESPIRATORY: Clear to auscultation. Breath sounds equal bilaterally. No wheezes , rales, or rhonchi. GASTROINTESTINAL: Abdomen soft, non-tender, nondistended. Normal, active bowel sounds MUSCULOSKELETAL: Extremities without clubbing, cyanosis, or edema. NEURO: Awake but demented. Hospital Course Left hip fracture Ortho consulted- s/p left hip pinning. Continue pain control. continue PT. management per ortho. Left eyebrow laceration Sutured in the ER Follow clinically Suture removals in 7-10 days Hypertension Continue baseline treatment Follow blood pressures Adjust treatments as needed Hold for any hypotension Dementia continue Aricept and Namenda Pt Condition on Discharge: Fair Discharge Disposition: Discharge to SNF Discharge Time: > 30 minutes Discharge Instructions DIET: Follow Instructions for: Heart Healthy Diet Other Activity Instructions: Luis Dodd MD Jun 14, 2017 09:24
[2017-06-14] MEDS ORDERED: ASPI81CH6 CHEW (09:26)
[2017-06-14] MEDS: CITALOPRAM HYDROBROMIDE 20 MG TAB PO SCH (09:44)
[2017-06-14] MEDS: MEMANTINE HCL 10 MG TAB PO SCH ×2 (09:45→21:17)
[2017-06-14] MEDS: CHOLECALCIFEROL (VIT D3) 5000 UNIT CAP PO SCH (09:45)
[2017-06-14] MEDS: LISINOPRIL 10 MG TAB PO SCH (09:45)
[2017-06-14 12:00] VITALS: BP 178/76; PULSE 81; RESP 20; TEMP 97.4; O2SAT 95
[2017-06-14] MEDS: ACETAMINOPHEN/HYDROcodone 325 MG/5 MG TAB PO PRN ×3 (13:14→21:23)
[2017-06-14 16:00] VITALS: BP 152/66; PULSE 81; RESP 20; TEMP 98.7; O2SAT 95
[2017-06-14] MEDS: SODIUM CHLOR 0.9% 1000 ML INJ 1,000 ML IV SCH (17:04)
[2017-06-14 20:00] VITALS: BP 178/74; PULSE 73; RESP 20; TEMP 97.4; O2SAT 94
[2017-06-14] MEDS: DONEPEZIL HCL 5 MG TAB PO SCH (21:17)
[2017-06-14] MEDS: ENOXAPARIN SODIUM 30 MG/0.3 ML SYRINGE SQ SCH (21:19)
[2017-06-15] VITALS: BP 198/88; PULSE 81; RESP 20; TEMP 97.5; O2SAT 93
[2017-06-15] MEDS: MORPHINE SULFATE 2 MG/ML SYRINGE IV PUSH PRN (01:18)
[2017-06-15 01:44] VITALS: BP 168/64
[2017-06-15] MEDS: ACETAMINOPHEN/HYDROcodone 325 MG/5 MG TAB PO PRN ×3 (02:07→11:36)
[2017-06-15] MEDS: SODIUM CHLOR 0.9% 1000 ML INJ 1,000 ML IV SCH ×2 (05:39→09:16)
[2017-06-15] MEDS: ENALAPRILAT 1.25 MG/ML VIAL IV PUSH PRN ×2 (05:41→11:36)
[2017-06-15 08:00] VITALS: BP 175/74; PULSE 75; RESP 20; TEMP 98.6; O2SAT 93
[2017-06-15] MEDS: SODIUM CHLORIDE 0.9% FLUSH 10 ML FLUSH IV FLUSH SCH (09:00)
[2017-06-15] MEDS: LISINOPRIL 10 MG TAB PO SCH (09:12)
[2017-06-15] MEDS: CHOLECALCIFEROL (VIT D3) 5000 UNIT CAP PO SCH (09:12)
[2017-06-15] MEDS: MEMANTINE HCL 10 MG TAB PO SCH (09:12)
[2017-06-15] MEDS: CITALOPRAM HYDROBROMIDE 20 MG TAB PO SCH (09:12)
--- NOTE | 2017-06-15 10:17 | HHI.PR ---
Subjective Remarks in no acute distress. pain seems to be controlled. awaiting transfer to rehab. Objective Vitals Vital Signs Date Time Temp Pulse Resp B/P (MAP) Pulse Ox O2 Delivery O2 Flow Rate FiO2 06/15/17 08:00 98.6 75 20 175/74 (107) 93 06/15/17 01:44 168/64 (98) 06/15/17 00:00 97.5 81 20 198/88 (124) 93 06/14/17 20:00 97.4 73 20 178/74 (108) 94 06/14/17 17:55 Nasal Cannula 2.00 06/14/17 16:00 98.7 81 20 152/66 (94) 95 06/14/17 12:00 97.4 81 20 178/76 (110) 95 I/O 06/14/17 06/14/17 06/14/17 06/15/17 06/15/17 06/15/17 07:00 15:00 23:00 07:00 15:00 23:00 Intake Total 240 ml 120 ml 240 ml 240 ml Output Total 1000 ml Balance 240 ml 120 ml -760 ml 240 ml Intake Oral 240 ml 120 ml 240 ml 240 ml Output Urine Total 1000 ml # Voids 4 5 # Bowel Movements 0 1 Result Diagram: 06/13/17 0330 06/13/17 1145 Imaging Last Impressions Hip X-Ray 06/12/17 0000 Signed Impressions: Service Date/Time: Monday, June 12, 2017 08:21 - CONCLUSION: Status post ORIF of left proximal femur fracture. Low Torre MD Chest X-Ray 06/11/17 1554 Signed Impressions: Service Date/Time: Sunday, June 11, 2017 16:20 - CONCLUSION: 1. Moderate-sized hiatal hernia. No active disease. Darnell Kam MD Pelvis X-Ray 06/11/17 0000 Signed Impressions: Service Date/Time: Sunday, June 11, 2017 15:33 - CONCLUSION: Acute left subcapital femoral neck fracture. Kris Nino Jr., MD Head CT 06/11/17 0000 Signed Impressions: Service Date/Time: Sunday, June 11, 2017 16:43 - CONCLUSION: 1. No acute findings. Darnell Kam MD Femur X-Ray 06/11/17 0000 Signed Impressions: Service Date/Time: Sunday, June 11, 2017 15:33 - CONCLUSION: 1. Mildly displaced subcapital fracture proximal left femur. Darnell Kam MD Objective Remarks GENERAL: This is a well-nourished, well-developed patient, in no apparent distress. CARDIOVASCULAR: Regular rate and regular rhythm without murmurs, gallops, or rubs. RESPIRATORY: Clear to auscultation. Breath sounds equal bilaterally. No wheezes , rales, or rhonchi. GASTROINTESTINAL: Abdomen soft, non-tender, nondistended. Normal, active bowel sounds MUSCULOSKELETAL: Extremities without clubbing, cyanosis, or edema. NEURO: Awake but demented. Procedures left hip pinning. Medications and IVs Inpatient Medications Acetaminophen/ Hydrocodone Bitart ([place] 5-325 Mg) 1 tab Q4H PRN PO PAIN 3<10 Last administered on 06/15/17 02:07; Start 06/12/17 at 16:30 Cefazolin Sodium 1000 mg/Sodium Chloride 100 ml @ 200 mls/hr Q6H IV Last administered on 06/13/17 02:09; Start 06/12/17 at 14:00; Stop 06/13/17 at 02:29 ; Status DC Cholecalciferol (Vitamin D3) 5,000 units DAILY PO Last administered on 09:12; Start 06/13/17 at 09:00 Citalopram Hydrobromide (CeleXA) 10 mg DAILY PO Last administered on 06/15/17 09:12; Start 06/12/17 at 09:00 Donepezil HCl (Aricept) 5 mg HS PO Last administered on 06/14/17 21:17; Start 06/11/17 at 21:00 Enalaprilat (Vasotec Inj) 1.25 mg Q6H PRN IV PUSH SBP>160, DBP>90 Last administered on 06/15/17 05:41; Start 06/15/17 at 04:15 Enoxaparin Sodium (Lovenox Inj) 30 mg Q24H SQ Last administered on 06/14/17 21 :19; Start 06/12/17 at 21:00 Ergocalciferol (Drisdol) 50,000 units ONCE ONCE PO Last administered on at 12:51; Start 06/12/17 at 12:30; Stop 06/12/17 at 12:31; Status DC Lidocaine HCl (Xylocaine 1% Inj (50 ml)) 10 ml ONCE ONCE INFIL ; Start at 15:30; Stop 06/11/17 at 15:31; Status DC Lidocaine HCl (Xylocaine-Mpf 1% Inj) 30 ml ONCE ONCE INFIL Last administered on 06/11/17at 16:32; Start 06/11/17 at 15:45; Stop 06/11/17 at 15:46; Status DC Lisinopril (Prinivil) 10 mg DAILY PO Last administered on 06/15/17at 09:12; Start 06/12/17 at 09:00 Magnesium Hydroxide (Milk Of Magnesia Liq) 30 ml Q12H PRN PO Mild constipation ; Start 06/11/17 at 17:00 Memantine (Namenda) 10 mg BID PO Last administered on 06/15/17at 09:12; Start at 21:00 Miscellaneous (Pill Splitter) 1 ea UNSCH PRN OTHER SEE LABEL COMMENTS; Start at 18:00 Miscellaneous Information ALL NURSING DEPARTME... UNSCH PRN .XX SEE LABEL COMMENTS; Start 06/12/17 at 11:15; Stop 06/13/17 at 11:14; Status DC Miscellaneous Information (Post-op Orders (for Pharmacy)) STAT ONCE XX ; Start 06/12/17 at 09:45; Stop 06/12/17 at 12:15; Status DC Morphine Sulfate (Morphine Inj) 2 mg Q3H PRN IV PUSH breakthrough pain Last administered on 06/15/17at 01:18; Start 06/12/17 at 01:00 Naloxone HCl (Narcan Inj) 0.4 mg UNSCH PRN IV PUSH SEE LABEL COMMENTS; Start at 17:00 Ondansetron HCl (Zofran Inj) 4 mg Q6H PRN IVP NAUSEA OR VOMITING; Start at 17:00 Sodium Chloride (NS Flush) 2 ml BID IV FLUSH Last administered on 06/14/17at 21: 20; Start 06/11/17 at 21:00 Tetanus/ Diphtheria Toxoids (Tetanus/ Diphtheria Tox Adult) 0.5 ml ONCE ONCE IM Last administered on 06/11/17at 16:36; Start 06/11/17 at 15:30; Stop 06/11/17 at 15:31; Status DC Tramadol HCl (Ultram) 100 mg Q4H PRN PO PAIN SCALE 6 TO 10 Last administered on 06/12/17at 15:59; Start 06/11/17 at 17:00; Stop 06/12/17 at 16:19; Status DC A/P Problem List: (1) Laceration of left eyebrow ICD Code: S01.112A - Laceration without foreign body of left eyelid and periocular area, initial encounter (2) Hip fracture, left ICD Code: S72.002A - Fracture of unspecified part of neck of left femur, initial encounter for closed fracture (3) Dementia ICD Code: F03.90 - Unspecified dementia without behavioral disturbance (4) Hypertension ICD Code: I10 - Essential (primary) hypertension Assessment and Plan A/P Left hip fracture Ortho consulted- s/p left hip pinning. Continue pain control. continue PT. f/u with ortho as outpatient. Left eyebrow laceration Sutured in the ER Follow clinically Suture removals in 7-10 days Hypertension BP not optimally controlled. Continue lisinopril. will add amlodipine. f/u as outpatient. Dementia continue Aricept and Namenda DVT prophylaxis with subq Lovenox Discharge Planning awaiting transfer to SNF. see med list. f/u; pcp and ortho. previously d/w the patient and family. previously d/w the case management. time spent 35 min. Problem Qualifiers (1) Hip fracture, left: Qualified Codes: S72.002A - Fracture of unspecified part of neck of left femur , initial encounter for closed fracture Luis Cat MD Jun 15, 2017 10:17
[2017-06-15] MEDS ORDERED: AMLO5TAB2 PO (10:20)
[2017-06-15] MEDS ORDERED: amLODIPine BESYLATE 5 MG TAB PO SCH (10:30)
[2017-06-15 12:00] VITALS: BP 177/77; PULSE 76; RESP 20; TEMP 98.1; O2SAT 97
== END 2017-06-15 12:18 | DRG 482 ==
LOC: PHED 15:13 → PHEDA 16:56 → UNDOADMIN 16:56 → N07A 20:12
PROVIDERS: ADMIT Internal Medicine; ATTEND Internal Medicine
PROC: 0HQ1XZZ Repair Face Skin, External Approach (ICD-10-PCS; 2017-06-11)
PROC: 0QS704Z Reposition Left Upper Femur with Internal Fixation Device, Open Approach (ICD-10-PCS; principal; 2017-06-12 07:47)
DX: S72.012A Unspecified intracapsular fracture of left femur, initial encounter for closed fracture (principal); F03.90 Unspecified dementia, unspecified severity, without behavioral disturbance, psychotic disturbance, mood disturbance, and anxiety; I10 Essential (primary) hypertension; S01.112A Laceration without foreign body of left eyelid and periocular area, initial encounter; M81.0 Age-related osteoporosis without current pathological fracture; W01.0XXA Fall on same level from slipping, tripping and stumbling without subsequent striking against object, initial encounter; Y92.099 Unspecified place in other non-institutional residence as the place of occurrence of the external cause
CPT/HCPCS: 12011; 70450; 71045; 72170; 73502; 73552; 76000; 80048; 80053; 82306; 82550; 82552; 85014; 85018; 85025; 85610; 85730; 86850; 86900; 86901; 90471; 90714; 93005; C1713; J0131; J0690; J1100; J1580; J1650; J2270; J2370; J2405; J2710; J3010; J3370; J7030; J7050

== ENCOUNTER 2017-07-26 10:24 | Emergency (ER) | payer MEDICARE, OTHER ==
[~2017-07-26] VITALS: Ht 162.6 cm; Wt 60.0 kg
[~2017-07-26 10:24] MED LIST changes: +AMLO5TAB2 PO; +CALCTAB19 PO; +DONE5TAB7 PO; +NORC5TAB PO; -TYLE325T PO; +VITA2000 PO; +VITA500012 PO; +WALKER/ADULT/FO1 MIS; +WHEEMIS3; +XARE10TA PO
[2017-07-26 10:31] VITALS: BP 105/68; PULSE 83; RESP 20; TEMP 97.3; O2SAT 97
--- NOTE | 2017-07-26 12:06 | PD ---
HPI Chief Complaint: Head Injury Time Seen by Provider: 11:02 Travel History International Travel<30 days: No Contact w/Intl Traveler<30days: No Traveled to known affect area: No History of Present Illness HPI This is a 87-year-old female with history of dementia, previous left hip fracture from a fall, presents today after she was found on the floor at her [facility]. Patient reportedly was found on the floor when the workers at the [facility] went to get her for breakfast. The patient is unable to give any history of how she fell or why she fell. She reports pain in her right shoulder right ribs and right hip area. She was able to stand however was unsteady per family. She also has a hematoma noted over her left eye. There is no laceration noted. Family at the bedside states that she has had 3 falls over fairly short period of time at the [facility]. Discussion was made about possibly bringing her to a more skilled facility and they were amenable to talking with upper caser about this. PFSH Past Medical History Hx Anticoagulant Therapy: Yes (BABY ASA DAILY) Depression: Yes Cardiovascular Problems: Yes (HTN) Dementia: Yes Diabetes: No Diminished Hearing: No Hypertension: Yes Immunizations Current: Yes ?: Not Menopausal: Yes Past Surgical History Appendectomy: Yes Social History Alcohol Use: No Tobacco Use: No Substance Use: No Allergies-Medications (Allergen,Severity, Reaction): Coded Allergies: No Known Allergies (Unverified Adverse Reaction, Unknown, 07/26/17) Reported Meds & Prescriptions Reported Meds & Active Scripts Active Amlodipine (Amlodipine Besylate) 5 Mg Tab 5 Mg PO DAILY Aspirin Low Dose (Aspirin) 81 Mg Chew 81 Mg CHEW DAILY 30 Days resume aspirin when has finished the course of Xarelto. Calcium 600+D 200 (Calcium Carbonate-Vitamin D) 600-200 Mg-Unit Tab 1 Tab PO BID Vitamin D3 (Cholecalciferol) 2,000 Unit Cap 2,000 Units PO DAILY Ergocalciferol 50,000 Unit Cap 50,000 Units PO Q7D [place] (Hydrocodone-Acetaminophen) 5 Mg-325 Mg Tab 1 Tab PO Q4H PRN Wheelchair (Device) 1 Mis Mis Ea .XX DIRECTED Walker/Adult/Folding (Device) 1 Mis Mis Ea .XX DIRECTED Reported Donepezil 5 Mg Tab 5 Mg PO HS Natural Lutein (Lutein) 20 Mg Cap 20 Mg PO DAILY Namenda (Memantine) 10 Mg Tab 10 Mg PO BID [place]-3 Fish Oil/Vitamin (Fish Oil-Cholecalciferol) 1,000-1,000 Mg Cap 1 Cap PO DAILY Biotin 10 Mg Tab 100 Mg PO DAILY Citalopram (Citalopram Hydrobromide) 10 Mg Tab 10 Mg PO DAILY Lisinopril 10 Mg Tab 10 Mg PO DAILY Review of Systems Eyes: Positive: Other (Bruising over the left eye), No: Redness HENT: Positive: Headaches (Left forehead), No: Neck Pain Cardiovascular: Positive: Chest Pain or Discomfort (Right lateral ribs), No: Palpitations Respiratory: No: Cough, Shortness of Breath Gastrointestinal: No: Nausea, Vomiting, Abdominal Pain Genitourinary: No: Incontinence Musculoskeletal: Positive: Pain, No: Limited ROM Neurologic: Positive: Other (History of dementia), No: Weakness, Dizziness, Change in Mentation Physical Exam Narrative GENERAL: Well-developed well-nourished female in no acute respiratory distress SKIN: Focused skin assessment warm/dry. HEAD: Atraumatic. Normocephalic. EYES: Extraocular muscles were intact. There is an ecchymotic area over her left eyebrow. No laceration noted.. No scleral icterus. No injection or drainage. ENT: No nasal bleeding or discharge. Mucous membranes pink and moist. NECK: Trachea midline. Supple. CARDIOVASCULAR: Regular rate and rhythm. No murmur appreciated. RESPIRATORY: No accessory muscle use. Clear to auscultation. Breath sounds equal bilaterally. There was tenderness to palpation on her right lateral ribs. No crepitance or deformity noted. GASTROINTESTINAL: Abdomen soft, non-tender, nondistended. MUSCULOSKELETAL: No obvious deformities. No clubbing. No cyanosis. No edema. Subjective mild discomfort over her right lateral hip. No deformities. She was able to flex and extend her knee without difficulty. There was good external rotation. NEUROLOGICAL: Awake and confused. No obvious cranial nerve deficits. Motor grossly within normal limits. Normal speech. Data Data Last Documented VS Vital Signs Date Time Temp Pulse Resp B/P (MAP) Pulse Ox O2 Delivery O2 Flow Rate FiO2 07/26/17 10:31 97.3 83 20 105/68 (80) [address] Brain W/O Iv Contrast(Rout) (07/26/17 11:38) Ct Cerv Spine W/O Contrast (07/26/17 11:38) Hip, Uni(Ap&Lat) W Ap Pelvis (07/26/17 11:38) Shoulder, Limited(2vws) (07/26/17 11:38) Ribs, Uni (W/Exp Cxr-Min 3vw) (07/26/17 11:38) MDM Medical Decision Making Medical Screen Exam Complete: Yes Emergency Medical Condition: Yes Differential Diagnosis Intracranial injury versus scalp and forehead contusion versus right shoulder fracture versus rib fracture of the right versus right hip contusion versus fracture Narrative Course 87-year-old female with history of dementia from the [facility] with contusion to her forehead and pain in her shoulder right ribs and right hip. CT head and neck show no evidence of acute findings. X-ray of the chest and right rib series shows no evidence of fractured ribs, x-ray of the right shoulder shows no evidence of acute fracture, x-ray of the right hip and pelvis showed no evidence of acute injury. The patient will be discharged back to the [facility]. I spoke with the daughter in detail that she will likely need to go to a jail facility rather than the [facility]. Through case management we have arranged for her to be in the dementia unit at the [facility] and the family will then go and look for jail facilities. The family are good with the plan. Diagnosis Primary Impression: Left supraorbital contusion Additional Impressions: Contusion of right shoulder Contusion of rib on right side Contusion of right hip History of dementia Additional Instructions: Assist with ambulation. Return as needed. Disposition: 01 DISCHARGE HOME Condition: Stable Reddy Campbell MD July 26, 2017 12:06
--- NOTE | 2017-07-26 12:21 | RADRPT ---
EXAM DATE/TIME: 07/26/2017 11:59 [facility] COMPARISON: No previous studies available for comparison. INDICATIONS : Right side rib pain after fall. MEDICAL HISTORY : Hypertension. Anticoagulant therapy. SURGICAL HISTORY : Appendectomy. ENCOUNTER: Initial ACUITY: 1 day PAIN SCORE: Non-responsive. LOCATION: Right ribs FINDINGS: There is no evidence of rib fracture. No hemothorax or pneumothorax is identified. There is apical pl eural thickening present. No evidence of focal parenchymal opacity. Cardiac contours are satisfactory heart size upper limits of normal CONCLUSION: No evidence of rib fracture, hemothorax or pneumothorax. Cisco Osman MD on July 26, 2017 at 12:15 Board Certified Radiologist. This report was verified electronically.
--- NOTE | 2017-07-26 12:22 | RADRPT ---
EXAM DATE/TIME: 07/26/2017 12:03 [facility] COMPARISON: No previous studies available for comparison. INDICATIONS : Right shoulder pain after fall. MEDICAL HISTORY : Hypertension. Anticoagulant therapy. SURGICAL HISTORY : Appendectomy. ENCOUNTER: Initial ACUITY: 1 day PAIN SCORE: Non-responsive. LOCATION: Right shoulder FINDINGS: The glenohumeral relationship is normal. There is no evidence of fracture. There is mild arthritic ch marylin of the a.c. joint. The adjacent clavicle and ribs appear intact. CONCLUSION: No acute bony injury Cisco Osman MD on July 26, 2017 at 12:18 Board Certified Radiologist. This report was verified electronically.
--- NOTE | 2017-07-26 12:25 | RADRPT ---
EXAM DATE/TIME: 07/26/2017 12:05 [facility] COMPARISON: No previous studies available for comparison. INDICATIONS : Right hip pain after fall. MEDICAL HISTORY : Hypertension. Anticoagulant therapy. SURGICAL HISTORY : Appendectomy. ENCOUNTER: Initial ACUITY: 1 day PAIN SCORE: Non-responsive. LOCATION: Right hip FINDINGS: There has been previous pinning of the left hip. The right hip is intact with no evidence of fracture or dislocation. Mild degenerative arthritic change in hips bilaterally. There is no displaced pelvic fracture identified. CONCLUSION: No acute bony injury Cisco Osman MD on July 26, 2017 at 12:21 Board Certified Radiologist. This report was verified electronically.
--- NOTE | 2017-07-26 12:48 | RADRPT ---
EXAM DATE/TIME: 07/26/2017 12:11 [facility] COMPARISON: CT BRAIN W/O CONTRAST, June 11, 2017, 16:43. INDICATIONS : Unknown trauma; found on floor, left perioribal bruising. RADIATION DOSE: 31.10 CTDIvol (mGy) MEDICAL HISTORY : Dementia. Cardiovascular disease Hypertension. SURGICAL HISTORY : Appendectomy. ENCOUNTER: Initial ACUITY: 1 day PAIN SCALE: Non-responsive LOCATION: TECHNIQUE: Multiple contiguous axial images were obtained of the head. Using automated exposure control and adj ustment of the mA and/or kV according to patient size, radiation dose was kept as low as reasonably a chievable to obtain optimal diagnostic quality images. DICOM format image data is available electro nically for review and comparison. FINDINGS: CEREBRUM: The ventricles are normal for age. There is stable bilateral cortical atrophy and chronic white matte r changes characteristic for patient's age. No evidence of midline shift, mass lesion, hemorrhage or acute infarction. No extra-axial fluid collections are seen. POSTERIOR FOSSA: The cerebellum and brainstem are intact. The 4th ventricle is midline. The cerebellopontine angle i s unremarkable. EXTRACRANIAL: The visualized portion of the orbits is intact. SKULL: The calvaria is intact. No evidence of skull fracture. No new or significant changes compared to the prior study. CONCLUSION: 1. Stable CT scan of the brain compared to the prior examination. 2. No focal or acute intracranial hemorrhage. Avelino Coleman MD on July 26, 2017 at 12:45 Board Certified Radiologist. This report was verified electronically.
--- NOTE | 2017-07-26 12:57 | RADRPT ---
EXAM DATE/TIME: 07/26/2017 12:11 [facility] COMPARISON: CT CERVICAL SPINE W/O CONTRAST, May 15, 2017, 17:08. INDICATIONS : Unknown trauma; found on floor, left periorbital bruising. RADIATION DOSE: 13.98 CTDIvol (mGy) MEDICAL HISTORY : Dementia. Cardiovascular disease Hypertension. SURGICAL HISTORY : Appendectomy. ENCOUNTER: Initial ACUITY: 1 day PAIN SCALE: Non-responsive LOCATION: neck TECHNIQUE: Volumetric scanning of the cervical spine was performed. Multiplanar reconstructions in the sagittal, coronal and oblique axial planes were performed. Using automated exposure control and adjustment o f the mA and/or kV according to patient size, radiation dose was kept as low as reasonably achievable to obtain optimal diagnostic quality images. DICOM format image data is available electronically f or review and comparison. FINDINGS: Today's exam is compared to the prior recent study of 05/15/2017. There continues to be diffuse degene rative changes throughout the cervical spine. There is mild stable anterior spondylolisthesis of C4 o andrea C5. There is disc degeneration and disc space narrowing at C5-6. No acute bony fractures are demo nstrated. There has been no change in the diffuse primary bony degenerative changes throughout the ce rvical spine. There is bilateral facet arthritis at multiple levels. CONCLUSION: 1. Stable diffuse primary bony degenerative changes are again noted throughout the cervical spine. 2. No acute bony fracture. No significant change compared to the prior study. Avelino Coleman MD on July 26, 2017 at 12:53 Board Certified Radiologist. This report was verified electronically.
[2017-07-26 14:10] VITALS: BP 130/60; PULSE 88; RESP 16; O2SAT 99
== END 2017-07-26 14:51 | disposition home or self-care (01) ==
LOC: NEPE 10:24
DX: S00.83XA Contusion of other part of head, initial encounter (principal); S40.011A Contusion of right shoulder, initial encounter; S20.211A Contusion of right front wall of thorax, initial encounter; S70.01XA Contusion of right hip, initial encounter; F03.90 Unspecified dementia, unspecified severity, without behavioral disturbance, psychotic disturbance, mood disturbance, and anxiety; I10 Essential (primary) hypertension; W19.XXXA Unspecified fall, initial encounter; Y92.099 Unspecified place in other non-institutional residence as the place of occurrence of the external cause
CPT/HCPCS: 70450; 71101; 72125; 73030; 73502; 99284

== ENCOUNTER 2017-08-23 16:39 | Emergency (ER) | payer OTHER ==
[~2017-08-23 16:39] MED LIST changes: -XARE10TA PO
[2017-08-23 16:45] VITALS: BP 160/70; PULSE 80; RESP 16; TEMP 98; O2SAT 97
--- NOTE | 2017-08-23 17:00 | PD ---
HPI Chief Complaint: Fall Time Seen by Provider: 16:54 Travel History International Travel<30 days: No Contact w/Intl Traveler<30days: No Traveled to known affect area: No History of Present Illness HPI Patient brought in by daughter, who noticed that the patient was walking with a different pair of shoes that were slippery. Patient had a mechanical slip fall and hit the left side of her head. No loss of consciousness, witnessed, no seizure type activity. No alleviating or aggravating factors. Patient was responsive and was able to stand up with some assistance. No known drug allergy Past medical history significant for dementia hypertension appendectomy and depression only on a baby aspirin. No other anticoagulants PFSH Past Medical History Hx Anticoagulant Therapy: Yes (BABY ASA DAILY) Depression: Yes Cardiovascular Problems: Yes (HTN) Dementia: Yes Diabetes: No Diminished Hearing: No Hypertension: Yes Immunizations Current: Yes ?: Not Menopausal: Yes Past Surgical History Appendectomy: Yes Social History Alcohol Use: No Tobacco Use: No Substance Use: No Allergies-Medications (Allergen,Severity, Reaction): Coded Allergies: No Known Allergies (Unverified Adverse Reaction, Unknown, 08/23/17) Reported Meds & Prescriptions Reported Meds & Active Scripts Active Vitamin D3 (Cholecalciferol) 2,000 Unit Cap 2,000 Units PO DAILY Wheelchair (Device) 1 Mis Mis Ea .XX DIRECTED Walker/Adult/Folding (Device) 1 Mis Mis Ea .XX DIRECTED Reported Multi-Vitamin Daily (Multiple Vitamin) 1 Tab Tab 1 Tab PO DAILY Memantine 10 Mg Tab 10 Mg PO BID Ferrous Sulfate 325 Mg (65 Mg Iron) Tablet 325 Mg PO BIDPC Calcium 600 + Vit D 400 Softgl (Calcium Carbonate/Vitamin D3) 600 Mg-400 Capsule 1 Tab PO BID Citalopram (Citalopram Hydrobromide) 10 Mg Tab 10 Mg PO DAILY Review of Systems General / Constitutional: No: Fever Eyes: No: Visual changes HENT: No: Headaches Cardiovascular: No: Chest Pain or Discomfort Respiratory: No: Shortness of Breath Gastrointestinal: No: Abdominal Pain Genitourinary: No: Dysuria Musculoskeletal: No: Pain Skin: No Rash Neurologic: Positive: Other (While) Psychiatric: No: Depression Endocrine: No: Polydipsia Hematologic/Lymphatic: No: Easy Bruising Physical Exam Narrative GENERAL: SKIN: Warm and dry. Ecchymosis to left cheek and left jawline HEAD: Atraumatic. Normocephalic. EYES: Pupils equal and round. No scleral icterus. No injection or drainage. ENT: No nasal bleeding or discharge. Mucous membranes pink and moist. NECK: Trachea midline. No JVD. CARDIOVASCULAR: Regular rate and rhythm. RESPIRATORY: No accessory muscle use. Clear to auscultation. Breath sounds equal bilaterally. GASTROINTESTINAL: Abdomen soft, non-tender, nondistended. MUSCULOSKELETAL: Extremities without clubbing, cyanosis, or edema. No obvious deformities. NEUROLOGICAL: Awake and alert. No obvious cranial nerve deficits. Motor grossly within normal limits. Five out of 5 muscle strength in the arms and legs. Normal speech. PSYCHIATRIC: Appropriate mood and affect; insight and judgment normal. Data Data Last Documented VS Vital Signs Date Time Temp Pulse Resp B/P (MAP) Pulse Ox O2 Delivery O2 Flow Rate FiO2 08/23/17 17:08 72 20 147/67 (93) 73 20 148/61 (90) 74 20 122/49 (73) 08/23/17 16:55 97 Room Air 08/23/17 16:[address] Brain W/O Iv Contrast(Rout) (08/23/17 16:54) Orthostatic Vital Signs (08/23/17 16:54) Blood Glucose (08/23/17 16:54) MDM Medical Decision Making Medical Screen Exam Complete: Yes Emergency Medical Condition: Yes Medical Record Reviewed: Yes Differential Diagnosis Facial contusion versus skull fracture versus facial fracture versus intracranial hemorrhage versus brain contusion Narrative Course CT head read by radiologist as no intracranial hemorrhage, no skull fracture, however patient does have extensive sinusitis within the right sphenoid sinus Diagnosis Primary Impression: Left facial contusion Additional Impression: Sinusitis, acute Qualified Codes: J01.30 - Acute sphenoidal sinusitis, unspecified Patient Instructions: Facial Contusion (ED), General Instructions, Sinusitis ( GEN) Scripts Amoxicillin-Clavulanate (Augmentin) 875-125 Mg Tab 1 TAB PO BID for Infection for 10 Days, #20 TAB 0 Refills Prov: Tomy Lloyd MD 08/23/17 Disposition: 01 DISCHARGE HOME Condition: Stable Tomy Lloyd MD Aug 23, 2017 17:00
[2017-08-23] MEDS ORDERED: FERR325T18 PO (17:07)
[2017-08-23] MEDS ORDERED: MEMA1TAB2 PO (17:07)
[2017-08-23] MEDS ORDERED: CALC600C3 PO (17:07)
[2017-08-23] MEDS ORDERED: MULT-65 PO (17:07)
[2017-08-23 17:08] VITALS: BP_SYST 122; BP_SYST 147; BP_SYST 148; BP_DIAS 49; BP_DIAS 61; BP_DIAS 67; RESP 20
--- NOTE | 2017-08-23 17:41 | RADRPT ---
EXAM DATE: 08/23/2017 5:33 PM EDT AGE/SEX: 87 years / Female INDICATIONS: Fall. Hit left side of head and ear. CLINICAL DATA: This is the patient's initial encounter. Patient reports that signs and symptoms have been present for 1 day and indicates a pain score of 1/10. MEDICAL/SURGICAL HISTORY: Hypertension. Dementia. Appendectomy. RADIATION DOSE: 50.77 CTDI (mGy) COMPARISON: [facility], [place] BRAIN W/O CONTRAST, 07/26/2017. . TECHNIQUE: CT of the head without contrast. Using automated exposure control and adjustment of the mA and/or kV according to patient size, radiation dose was kept as low as reasonably achievable to ob tain optimal diagnostic quality images. FINDINGS: There is extensive opacification of the right sphenoid sinus chronic in nature. There is no evidence for intracranial hemorrhage, mass effect, mass lesions, or edema. The visualized bony structures americo ear intact. Slight degree of brain atrophy is seen. Slight periventricular white matter changes are seen nonspecific mostly consistent with chronic small vessel ischemic changes. There are no signs of acute infarction for technique. CONCLUSION: Slight chronic small vessel ischemic and atrophic changes, extensive sinusitis within th e right sphenoid sinus and not changed. Electronically signed by: Enedelia Coates MD 08/23/2017 5:39 PM EDT
[2017-08-23] MEDS ORDERED: AUGM875T3 PO (17:47)
== END 2017-08-23 17:57 | disposition home or self-care (01) ==
LOC: PHEFT 16:39
DX: S00.83XA Contusion of other part of head, initial encounter (principal); J01.30 Acute sphenoidal sinusitis, unspecified; F32.9 Major depressive disorder, single episode, unspecified; I10 Essential (primary) hypertension; F03.90 Unspecified dementia, unspecified severity, without behavioral disturbance, psychotic disturbance, mood disturbance, and anxiety
CPT/HCPCS: 70450; 99283